=== PATIENT | female | born 1955 | race Caucasian/White ===

== ENCOUNTER → 2016-11-30 | Outpatient (CLI) | payer BC ==
--- NOTE | 2016-11-30 16:11 | BD ---
EXAMINATION TYPE: MG DEXA axial skeleton. DATE OF EXAM: 11/30/2016 COMPARISON: Previous study dated 02/01/2014 CLINICAL HISTORY: Postmenopausal female Height: 66 IN Weight: 121 LBS FRAX RISK QUESTIONS: Alcohol (3 or more units per day): NO Family History (Parent hip fracture): NO Glucocorticoids (More than 3mos): NO (Ex: prednisone, prednisolone, methylprednisolone, dexamethasone, and hydrocortisone). History of Fracture in Adulthood: YES RT FOOT AGE 57 Secondary Osteoporosis: 1. Type 1 Diabetes: NO 2. Hyperthyroidism: NO 3. Menopause before 45: NO 4. Malnutrition: NO 5. Chronic liver disease: NO Rheumatoid Arthritis: NO Current Tobacco Use: NO RISK FACTORS HISTORY OF: Other Fractures since Age 52: YES RT FOOT When: AGE 57 Family History of Osteoporosis: YES SISTERS X 3 Active: YES Diet low in dairy products/other sources of calcium: YES Postmenopausal woman: AGE 52 Take estrogen and/or progesterone medications: NOT NOW How long: TOOK CONTROL AGE 22 - 25 MEDICATIONS: Thyroid Medications: YES Which medication: Levothyroxine How Lon + YRS Osteoporosis Medications: YES Which medication: Fosamax How Long: SINCE AGR 37 Additional Medications: CALCIUM, VIT D, FOSAMAX, LEVOTHYROXINE,SIMVASTATIN, SINGULAIR, ELAVIL, DICLOF ENAC, LATANOPROST MIHAELA, FLOVENT DISK, FIORICET EXAM MEASUREMENTS: Bone mineral densitometry was performed using the Connect[employer] System. Bone mineral density as measured about the Lumbar spine is: ----- L1-L4(G/cm2): 0.942 T Score Values are as follows: ----- L2: -2.9 ----- L3: -1.3 ----- L4: -1.7 ----- L1-L4: -2.0 Bone mineral density has: Decreased -1.1% since study of: 02/01/2014 Bone mineral density about the R hip (g/cm2): 0.574 Bone mineral density about the L hip (g/cm2): 0.633 T Score values are as follows: -----R Neck: -3.3 -----L Neck: -2.9 -----R Total: -3.1 -----L Total: -2.6 Bone mineral density has: Decreased -4.1% since study of: 02/01/2014 IMPRESSION: OSTEOPOROSIS MAJOR OSTEOPOROTIC FRACTURE RISK: 14.7% HIP FRACTURE RISK: 5.4% NOTE: T-SCORE=SD OF THE YOUNG ADULT MEAN.
--- NOTE | 2016-12-01 09:59 | MM ---
Reason for exam: screening (asymptomatic). Last mammogram was performed 1 year and 6 months ago. History: Patient is postmenopausal and is nulliparous. Breast lifts of both breasts, 2013. Implant Removal of both breasts, 2013. Retro-pectoral silicone gel implants in both breasts, 1989. Took hormonal contraceptives for 7 months beginning at age 50. Took estrogen for 2 months beginning at age 52. Physical Findings: A clinical breast exam by your physician is recommended on an annual basis and results should be correlated with mammographic findings. MG Screening Mammo w CAD Bilateral CC and MLO view(s) were taken. Prior study comparison: May 29, 2015, bilateral MG screening mammo w CAD. February 01, 2014, bilateral MG diagnostic mammo w CAD REGINO. January 31, 2013, CAD bilateral diagnostic mammogram. The breast tissue is extremely dense which could obscure a lesion on mammography. Focal asymmetry left MLO view upper middle depth. This finding is changed, more defined when compared with previous exams 2014. ASSESSMENT: Incomplete: need additional imaging evaluation, BI-RAD 0 RECOMMENDATION: Special view mammogram of the left breast. If lesion persists on supplemental views, image directed ultrasound is recommended. [facility] will attempt to contact patient to return for supplemental views and ultrasound if indicated.
== END | disposition home or self-care (01) ==
LOC: RADMAMWWP 09:08
PROVIDERS: ATTEND Obstetrics & Gynecology
DX: Z12.31 Encounter for screening mammogram for malignant neoplasm of breast (principal); M81.0 Age-related osteoporosis without current pathological fracture; R92.2 Inconclusive mammogram
CPT/HCPCS: 77080; G0202

== ENCOUNTER → 2016-12-09 | Outpatient (CLI) | payer BC ==
--- NOTE | 2016-12-09 10:42 | MM ---
Reason for exam: additional evaluation requested from abnormal screening. Last mammogram was performed less than 1 month ago. History: Patient is postmenopausal and is nulliparous. Breast lifts of both breasts, 2013. Implant Removal of both breasts, 2013. Retro-pectoral silicone gel implants in both breasts, 1989. Took hormonal contraceptives for 7 months beginning at age 50. Took estrogen for 2 months beginning at age 52. Physical Findings: Nurse did not find any significant physical abnormalities on exam. MG Work Up Mamm w CAD LT LM, spot compression XCCL, and spot compression MLO view(s) were taken of the left breast. Prior study comparison: November 30, 2016, bilateral MG screening mammo w CAD. June 04, 2015, right breast MG 3d work up w/cad RT. The breast tissue is extremely dense which could obscure a lesion on mammography. There is no discrete abnormality. These results were verbally communicated with the patient and result sheet given to the patient on 12/09/16. ASSESSMENT: Probably benign, BI-RAD 3 RECOMMENDATION: Follow-up diagnostic mammogram of the left breast in 6 months.
== END ==
LOC: RADMAMWWP 09:45
PROVIDERS: ATTEND Obstetrics & Gynecology
DX: R92.8 Other abnormal and inconclusive findings on diagnostic imaging of breast (principal)

== ENCOUNTER → 2017-06-10 | Outpatient (CLI) | payer BC ==
--- NOTE | 2017-06-10 12:31 | MM ---
Reason for exam: follow-up at short interval from prior study. Last mammogram was performed 6 months ago. History: Patient is postmenopausal and is nulliparous. Breast lifts of both breasts, 2013. Implant Removal of both breasts, 2013. Retro-pectoral silicone gel implants in both breasts, 1989. Took hormonal contraceptives for 7 months beginning at age 50. Took estrogen for 2 months beginning at age 52. Physical Findings: Nurse did not find any significant physical abnormalities on exam. MG 3D Diag Mammo W/Cad LT CC and MLO view(s) were taken of the left breast. Prior study comparison: December 09, 2016, left breast MG work up mamm w CAD LT. November 30, 2016, bilateral MG screening mammo w CAD. The breast tissue is heterogeneously dense. This may lower the sensitivity of mammography. There is no discrete abnormality. These results were verbally communicated with the patient and result sheet given to the patient on 06/10/17. ASSESSMENT: Negative, BI-RAD 1 RECOMMENDATION: Return to routine screening mammogram schedule for both breasts. Back on schedule for November 2017.
== END | disposition home or self-care (01) ==
LOC: RADMAMWWP 10:15
PROVIDERS: ATTEND Obstetrics & Gynecology
DX: R92.8 Other abnormal and inconclusive findings on diagnostic imaging of breast (principal)
CPT/HCPCS: G0206; G0279

== ENCOUNTER → 2018-02-07 | Outpatient (CLI) | payer BC ==
--- NOTE | 2018-02-09 09:07 | MM ---
Reason for exam: screening (asymptomatic). Last mammogram was performed 8 months ago. History: Patient is postmenopausal and is nulliparous. Breast lifts of both breasts, 2013. Implant Removal of both breasts, 2013. Retro-pectoral silicone gel implants in both breasts, 1989. Took hormonal contraceptives for 7 months beginning at age 50. Took estrogen for 2 months beginning at age 52. Physical Findings: A clinical breast exam by your physician is recommended on an annual basis and results should be correlated with mammographic findings. MG 3D Screening Mammo W/Cad Bilateral CC and MLO view(s) were taken. Prior study comparison: June 10, 2017, left breast MG 3d diag mammo w/cad LT. December 09, 2016, left breast MG work up mamm w CAD LT. The breast tissue is extremely dense which could obscure a lesion on mammography. No significant changes when compared with prior studies. ASSESSMENT: Benign, BI-RAD 2 RECOMMENDATION: Routine screening mammogram of both breasts in 1 year.
== END | disposition home or self-care (01) ==
LOC: RADMAMWWP 11:14
PROVIDERS: ATTEND Obstetrics & Gynecology
DX: Z12.31 Encounter for screening mammogram for malignant neoplasm of breast (principal)
CPT/HCPCS: 77063; 77067

== ENCOUNTER → 2018-10-25 | Outpatient (CLI) | payer BC ==
[2018-10-26 05:29] LABS: Gliadin AB IgA, Unit <0.2 U/mL
== END | disposition home or self-care (01) ==
LOC: LABWHC1 14:25
PROVIDERS: ATTEND Allergy & Immunology
DX: K21.9 Gastro-esophageal reflux disease without esophagitis (principal)
CPT/HCPCS: 36415; 82784; 83516

== ENCOUNTER → 2019-03-08 | Outpatient (CLI) | payer BC ==
--- NOTE | 2019-03-08 15:32 | CT ---
EXAMINATION TYPE: CT urogram wo/w con DATE OF EXAM: 03/08/2019 COMPARISON: None INDICATION: Microhematuria DLP: 720.8 mGycm, Automated exposure control for dose reduction was used. CONTRAST: 100 mL of Isovue 300. Study performed TECHNIQUE: Axial images were obtained from above the diaphragm to the pubic rami in the axial plane a t 5 mm thick sections. Reconstructed images are reviewed on the computer in the coronal plane. 3-D reconstructive images performed on a separate computer by the technologist are reviewed. FINDINGS: Limited CT sections are obtained the lung bases. The lung bases are clear. CT ABDOMEN: Liver: Normal Spleen: Normal Pancreas: Normal Adrenal glands: The adrenal glands are normal. Gallbladder: Normal Kidneys: No masses are evident. No hydronephrosis is present. There is a superior medial cortical r enal cyst on the left kidney measuring 0.8 cm and 28 Hounsfield units. Delayed images were obtained through the kidneys, which remain unremarkable. 3-D reconstructive images performed on a separate [employer] by the technologist are reviewed. Renal calyces infundibula and renal pelves appear normal. Aorta: Vascular calcification is within the aorta. Inferior vena cava: Normal. CT PELVIS: Fecal debris is through the colon. The small bowel loops are slightly prominent with fluid filled loo ps of small bowel. Correlate for ileus. Appendix: The visualized Urinary bladder: Normal as visualized. Contrast within the colon. The distal left ureter is evident. Distal right ureter is not identified. No hydroureter is evident Genitourinary structures: Uterus is absent. Adnexal regions are clear. Osseous structures: No suspicious lytic or sclerotic lesions. IMPRESSIONS: 1. No suspicious etiology to account for microhematuria. 2. The distal right ureter is not identified during the exam. No hydroureter is evident.
== END | disposition home or self-care (01) ==
LOC: RADCTMAIN 08:30
PROVIDERS: ATTEND Urology
DX: R31.1 Benign essential microscopic hematuria (principal); Z88.4 Allergy status to anesthetic agent; Z88.5 Allergy status to narcotic agent
CPT/HCPCS: 74178; 74400; Q9967

== ENCOUNTER → 2019-03-09 | Outpatient (CLI) | payer BC ==
--- NOTE | 2019-03-12 13:43 | MM ---
Reason for exam: screening (asymptomatic). Last mammogram was performed 1 year and 1 month ago. History: Patient is postmenopausal and is nulliparous. Breast lifts of both breasts, 2013. Implant Removal of both breasts, 2013. Retro-pectoral silicone gel implants in both breasts, 1989. Took hormonal contraceptives for 7 months beginning at age 50. Took estrogen for 2 months beginning at age 52. Physical Findings: A clinical breast exam by your physician is recommended on an annual basis and results should be correlated with mammographic findings. MG 3D Screening Mammo W/Cad Bilateral CC and MLO view(s) were taken. Prior study comparison: February 07, 2018, bilateral MG 3d screening mammo w/cad. June 10, 2017, left breast MG 3d diag mammo w/cad LT. The breast tissue is heterogeneously dense. This may lower the sensitivity of mammography. Left lower outer quadrant 5 x 8mm mas 3cm from nipple. Right lower inner quadrant focal asymmetry at middle depth 3.5-4cm from nipple. ASSESSMENT: Incomplete: need additional imaging evaluation, BI-RAD 0 RECOMMENDATION: Special view mammogram of both breasts. If lesion persists on supplemental views, image directed ultrasound is recommended. [facility] will attempt to contact patient to return for supplemental views and ultrasound if indicated.
== END | disposition home or self-care (01) ==
LOC: RADMAMWWP 11:24
PROVIDERS: ATTEND Obstetrics & Gynecology
DX: Z12.31 Encounter for screening mammogram for malignant neoplasm of breast (principal)
CPT/HCPCS: 77063; 77067

== ENCOUNTER → 2019-03-20 | Outpatient (CLI) | payer BC ==
--- NOTE | 2019-03-20 13:43 | MM ---
Reason for exam: additional evaluation requested from abnormal screening. Last mammogram was performed less than 1 month ago. History: Patient is postmenopausal and is nulliparous. Breast lifts of both breasts, 2013. Implant Removal of both breasts, 2013. Retro-pectoral silicone gel implants in both breasts, 1989. Took hormonal contraceptives for 7 months beginning at age 50. Took estrogen for 2 months beginning at age 52. Physical Findings: Nurse did not find any significant physical abnormalities on exam. MG 3D Work Up W/Cad REGINO Bilateral spot compression CC, spot compression MLO, and LM view(s) were taken. Prior study comparison: March 09, 2019, bilateral MG 3d screening mammo w/cad. February 07, 2018, bilateral MG 3d screening mammo w/cad. The breast tissue is heterogeneously dense. This may lower the sensitivity of mammography. The previously seen abnormality resolves on additional views and appears as fibroglandular tissue compatible with summation. Bilateral, however, left lateral distortion is subtly seen on spot CC 3D 4.3cm from nipple. without correlate on ML or MLO. These results were verbally communicated with the patient and result sheet given to the patient on 03/20/19. ASSESSMENT: Incomplete: need additional imaging evaluation, BI-RAD 0 RECOMMENDATION: Ultrasound of the left breast. (lateral)
--- NOTE | 2019-03-20 13:44 | USB ---
Reason for exam: additional evaluation requested from abnormal screening. History: Patient is postmenopausal and is nulliparous. Breast lifts of both breasts, 2013. Implant Removal of both breasts, 2013. Retro-pectoral silicone gel implants in both breasts, 1989. Took hormonal contraceptives for 7 months beginning at age 50. Took estrogen for 2 months beginning at age 52. US Breast Workup Limited LT Left limited breast ultrasound including focal area of concern, retroareolar and axilla demonstrates a 0.4 x 0.6 x 0.2cm oval, cystic lesion at 4 o'clock, appears as a complicated cyst in dense tissue. 6 month follow up recommended. These results were verbally communicated with the patient and result sheet given to the patient on 03/20/19. ASSESSMENT: Probably benign, BI-RAD 3 RECOMMENDATION: Ultrasound of the left breast in 6 months.
== END | disposition home or self-care (01) ==
LOC: RADMAMWWP 08:57
PROVIDERS: ATTEND Obstetrics & Gynecology
DX: R92.8 Other abnormal and inconclusive findings on diagnostic imaging of breast (principal)
CPT/HCPCS: 77062; 77066

== ENCOUNTER 2019-04-12 10:42 | Day surgery (SDC) | payer BC ==
[2019-04-09 11:05] VITALS: BMI 20.1
[~2019-04-12 10:42] MED LIST: LACTATED RINGERS 1,000 ML IV SCH
[2019-04-12 11:38] VITALS: TEMP 98.6
[2019-04-12] MEDS ORDERED: LIDOCAINE 1% 20 ML VIAL (10MG/ML) FOR IV START INTRADERMA ONE (11:51)
[2019-04-12] MEDS ORDERED: PROPOFOL 10 MG/ML 20 ML VIAL IV ONE (12:02)
--- NOTE | 2019-04-12 12:12 | P.PCN ---
Date of Procedure: 04/12/19 Procedure(s) Performed: BRIEF HISTORY: Patient is a 63-year-old, pleasant, 8 female, scheduled for an upper endoscopy as a part of evaluation of constant throat irritation for 25 years duration. Recently she was tried on Prilosec 20 mg daily and symptoms completely resolved. However she does not want to take the medications forever and hence he scheduled for an upper endoscopy to evaluate for GERD causing the symptoms.. PROCEDURE PERFORMED: Esophagogastroduodenoscopy with biopsy. PREOPERATIVE DIAGNOSIS: Chronic Throat irritation and throat discomfort. IV sedation per anesthesia. PROCEDURE: After informed consent was obtained, the patient was brought into the endoscopy unit. IV sedation was administered by Anesthesia under continuous monitoring. Initially the Olympus GIF-140 video endoscope was inserted into the mouth. Esophagus intubated without any difficulty. It was gradually advanced into the stomach and duodenum and carefully examined. The bulb and the second part of the duodenum appeared normal. The scope at this time was withdrawn to the stomach, adequately insufflated with air, and upon careful examination, mucosa of the antrum, body, cardia and the fundus appeared normal. The scope was then withdrawn into the esophagus. The GE junction was located at 39 cm from the incisors. Small sliding type hiatal hernia noted. There was patchy erythema of the GE junction consistent with LA grade A reflux esophagitis. The rest of the esophagus appeared normal. As his were done from the mid and distal esophagus. The patient tolerated the procedure well. IMPRESSION: 1. Small sliding type hiatal hiatal hernia. 2. LA grade a reflux esophagitis. RECOMMENDATIONS: The findings of this examination were discussed with the patient as well as her family. She will follow with the biopsy results. She was advised to try Pepcid 20 mg twice daily for possible GERD causing atypical laryngeal symptoms. If there is no benefit she can start back on Prilosec 20 mg daily. Briefly educated about diet modification antireflux measures..
[2019-04-12] MEDS ORDERED: ONDANSETRON 4 MG/2 ML VIAL IVP ONE (12:24)
[2019-04-12 12:37] VITALS: RESP 16
[2019-04-12 12:53] VITALS: BP 118/76; PULSE 66
== END 2019-04-12 13:02 | disposition home or self-care (01) ==
LOC: ORWHC2ENDO 10:42
PROVIDERS: ATTEND Internal Medicine Gastroenterology
DX: K21.0 Gastro-esophageal reflux disease with esophagitis (principal); K44.9 Diaphragmatic hernia without obstruction or gangrene; Z88.5 Allergy status to narcotic agent; Z88.8 Allergy status to other drugs, medicaments and biological substances; E78.5 Hyperlipidemia, unspecified; M79.7 Fibromyalgia; Z79.899 Other long term (current) drug therapy
CPT/HCPCS: 88305; 43239; J2405; J2704

== ENCOUNTER → 2020-01-03 | Outpatient (CLI) | payer BC ==
--- NOTE | 2020-01-04 07:47 | USB ---
Reason for exam: follow-up at short interval from prior study. History: Patient is postmenopausal and is nulliparous. Breast lifts of both breasts, 2013. Implant Removal of both breasts, 2013. Retro-pectoral silicone gel implants in both breasts, 1989. Took hormonal contraceptives for 7 months beginning at age 50. Took estrogen for 2 months beginning at age 52. Physical Findings: Nurse Summary: all soft, nodular, movable (nurse ts). US Breast Limited LT Right limited breast ultrasound including focal area of concern, retroareolar and axilla demonstrates no cystic or solid lesion seen. These results were verbally communicated with the patient and result sheet given to the patient on 01/03/20. ASSESSMENT: Benign, BI-RAD 2 RECOMMENDATION: Follow-up diagnostic mammogram of both breasts in 2 months. Back on schedule for February 2020. Ultrasound of the left breast in 6 months.
== END | disposition home or self-care (01) ==
LOC: RADUSWWP 14:22
PROVIDERS: ATTEND Obstetrics & Gynecology
DX: R92.8 Other abnormal and inconclusive findings on diagnostic imaging of breast (principal)

== ENCOUNTER → 2020-04-07 | Outpatient (CLI) | payer BC ==
--- NOTE | 2020-04-08 12:09 | MM ---
Reason for exam: additional evaluation requested from prior study. Last mammogram was performed 1 year and 1 month ago. History: Patient is postmenopausal and is nulliparous. Breast lifts of both breasts, 2013. Implant Removal of both breasts, 2013. Retro-pectoral silicone gel implants in both breasts, 1989. Took hormonal contraceptives for 7 months beginning at age 50. Took estrogen for 2 months beginning at age 52. Physical Findings: Nurse did not find any significant physical abnormalities on exam. MG 3D Diag Mammo W/Cad REGINO Bilateral CC and MLO view(s) were taken. Prior study comparison: March 20, 2019, bilateral MG 3d work up w/cad REGINO. March 09, 2019, bilateral MG 3d screening mammo w/cad. The breast tissue is heterogeneously dense. This may lower the sensitivity of mammography. There is chronic nodularity in the left breast. Posterior central focal asymmetry right breast becomes less defined on spot 3D and 3D lateral. These results were verbally communicated with the patient and result sheet given to the patient on 04/07/20. ASSESSMENT: Incomplete: need additional imaging evaluation, BI-RAD 0 RECOMMENDATION: Ultrasound of the right breast. (subareolar and periareolar)
--- NOTE | 2020-04-08 12:10 | USB ---
Reason for exam: additional evaluation requested from abnormal screening. History: Patient is postmenopausal and is nulliparous. Breast lifts of both breasts, 2013. Implant Removal of both breasts, 2013. Retro-pectoral silicone gel implants in both breasts, 1989. Took hormonal contraceptives for 7 months beginning at age 50. Took estrogen for 2 months beginning at age 52. US Breast Limited RT Right limited breast ultrasound including focal area of concern, retroareolar and axilla demonstrates no cystic or solid lesion seen. Scanned subareolar and periareolar. Dense tissue is noted. These results were verbally communicated with the patient and result sheet given to the patient on 04/07/20. ASSESSMENT: Probably benign, BI-RAD 3 RECOMMENDATION: Follow-up diagnostic mammogram of the right breast in 6 months.
== END | disposition home or self-care (01) ==
LOC: RADMAMWWP 14:33
PROVIDERS: ATTEND Obstetrics & Gynecology
DX: R92.8 Other abnormal and inconclusive findings on diagnostic imaging of breast (principal)
CPT/HCPCS: 77062; 77066

== ENCOUNTER 2020-07-16 18:15 | Emergency (ER) | payer BC ==
[2020-07-16] MEDS ORDERED: ONDANSETRON 4 MG/2 ML VIAL IVP STA (18:54)
[2020-07-16] MEDS ORDERED: SODIUM CHLORIDE 0.9% 1,000 ML IV STA (18:54)
[2020-07-16] MEDS ORDERED: HYDROmorphone 0.5 MG/0.5 ML SYRINGE IVP STA (18:55)
--- NOTE | 2020-07-16 18:59 | ED ---
General Adult HPI - General Chief complaint: Abdominal Pain Stated complaint: abd pain Time Seen by Provider: 07/16/20 18:46 Source: patient, RN notes reviewed Mode of arrival: wheelchair Limitations: no limitations - History of Present Illness Initial comments: Patient is a pleasant 64-year-old female presenting to the emergency Department with complaints of abdominal discomfort. Onset of symptoms was a couple hours ago. Patient had mild back discomfort right lower earlier today. Abdominal discomfort is somewhat severe at this time and right lower abdomen. Patient has some nausea. No vomiting. No constipation or diarrhea. No hematuria or d ysuria. No history of similar symptoms previously. Discomfort does increase With movement and position changes - Related Data Home Medications Medication Instructions Recorded Confirmed Buta/APAP/Caf/Cod 56-935-44-30 1 cap PO TID PRN 12/08/15 04/12/19 [Fioricet w/Cod 03-008-54-30MG] Levothyroxine Sodium [Levoxyl] 50 mcg PO DAILY 12/08/15 04/12/19 Naltrexone HCl [Revia] 4.5 mg PO DAILY 12/08/15 04/12/19 Simvastatin [Zocor] 40 mg PO DAILY 12/08/15 04/12/19 Amitriptyline HCl [Elavil] 30 mg PO HS 04/09/19 04/12/19 Bimatoprost [Lumigan .01% Ophth 1 drop BOTH EYES HS 04/09/19 04/12/19 Soln] Mometasone Furoate [Asmanex] 1 puff INHALATION DAILY 04/09/19 04/12/19 Galcanezumab-Gnlm [Emgality 120 mg SQ DAILY PRN 04/12/19 04/12/19 Syringe] Allergies Allergy/AdvReac Type Severity Reaction Status Date / Time bupivacaine HCl Allergy Wheezing Verified 07/16/20 18:33 [From Marcaine] ketorolac tromethamine Allergy Vomiting Verified 07/16/20 18:33 [From Toradol] meperidine HCl [From Demerol] Allergy Vomiting Verified 07/16/20 18:33 Milk Containing Products Allergy Anaphylaxis Verified 07/16/20 18:33 [Dairy] Review of Systems ROS Statement: Those systems with pertinent positive or pertinent negative responses have been documented in the HPI. ROS Other: All systems not noted in ROS Statement are negative. Constitutional: Denies: fever Eyes: Denies: eye pain ENT: Denies: ear pain Respiratory: Denies: cough Cardiovascular: Denies: chest pain Endocrine: Denies: fatigue Gastrointestinal: Reports: as per HPI, abdominal pain, nausea. Denies: vomiting Genitourinary: Denies: dysuria Musculoskeletal: Reports: as per HPI Skin: Denies: rash Neurological: Denies: weakness Past Medical History Past Medical History: Eye Disorder, Fibromyalgia, Hyperlipidemia, Neurologic Disorder, Osteoarthritis (OA), Thyroid Disorder Additional Past Medical History / Comment(s): , migraine headaches, hypothyroid - Hashimotos, GLAUCOMA History of Any Multi-Drug Resistant Organisms: None Reported Past Surgical History: Hysterectomy Additional Past Surgical History / Comment(s): RK surgery, cataract surgery BILAT EYES, COLONOSCOPY Past Anesthesia/Blood Transfusion Reactions: Postoperative Nausea & Vomiting (PONV) Additional Past Anesthesia/Blood Transfusion Reaction / Comment(s): no blood transfusions Past Psychological History: No Psychological Hx Reported Smoking Status: Never smoker Past Alcohol Use History: Rare Past Drug Use History: None Reported - Past Family History Mother Family Medical History: Cancer Additional Family Medical History / Comment(s): lung Sister(s) Family Medical History: Cancer Additional Family Medical History / Comment(s): lung Father Family Medical History: Cancer General Exam Limitations: no limitations General appearance: alert Head exam: Present: normocephalic Eye exam: Present: normal appearance Neck exam: Present: normal inspection Respiratory exam: Present: normal lung sounds bilaterally Cardiovascular Exam: Present: regular rate, normal rhythm Expanded Peripheral pulses: 2+: Dorsalis Pedis (R), Dorsalis Pedis (L) GI/Abdominal exam: Present: soft, tenderness (Moderate tenderness right lower quadrant), guarding. Absent: distended, rebound, rigid Extremities exam: Present: normal inspection. Absent: pedal edema, calf tenderness Back exam: Present: normal inspection. Absent: tenderness, CVA tenderness (R) Neurological exam: Present: alert Psychiatric exam: Present: normal affect, normal mood Skin exam: Present: normal color Course Vital Signs 07/16/20 18:31 Temperature 98.8 F Pulse Rate 74 Respiratory 16 Rate Blood Pressure 132/83 O2 Sat by Pulse 98 Oximetry Medical Decision Making - Medical Decision Making Patient evaluated and resting comfortably in bed. Patient is feeling much better. Abdomen soft and nontender. Patient updated on results and need for follow-up. Also updated and need to return for worsening symptoms. Patient does not want any treatment for constipation at this point and will take something at home. - Lab Data Result diagrams: 07/16/20 19:03 07/16/20 19:03 Lab Results 07/16/20 07/16/20 07/16/20 Range/Units 19:03 19: 19:03 WBC 11.8 H (3.8-10.6) k/uL RBC 4.04 (3.80-5.40) m/uL Hgb 13.1 (11.4-16.0) gm/dL Hct 40.8 (34.0-46.0) % MCV 101.0 H (80.0-100.0) fL MCH 32.3 (25.0-35.0) pg MCHC 32.0 (31.0-37.0) g/dL RDW 15.9 H (11.5-15.5) % Plt Count 371 (150-450) k/uL MPV 6.8 Neutrophils % 83 % Lymphocytes % 11 % Monocytes % 4 % Eosinophils % 1 % Basophils % 1 % Neutrophils # 9.7 H (1.3-7.7) k/uL Lymphocytes # 1.2 (1.0-4.8) k/uL Monocytes # 0.4 (0-1.0) k/uL Eosinophils # 0.1 (0-0.7) k/uL Basophils # 0.1 (0-0.2) k/uL Hypochromasia Marked Poikilocytosis Moderate Macrocytosis Slight PT 10.3 (9.0-12.0) sec INR 1.0 (<1.2) APTT 19.8 L (22.0-30.0) sec Sodium (137-145) mmol/L Potassium (3.5-5.1) mmol/L Chloride (98-107) mmol/L Carbon Dioxide (22-30) mmol/L Anion Gap mmol/L BUN (7-17) mg/dL Creatinine (0.52-1.04) mg/dL Est GFR (CKD-EPI)AfAm (>60 ml/min/1.73 sqM) Est GFR (CKD-EPI)NonAf (>60 ml/min/1.73 sqM) Glucose (74-99) mg/dL Calcium (8.4-10.2) mg/dL Total Bilirubin (0.2-1.3) mg/dL AST (14-36) U/L ALT (4-34) U/L Alkaline Phosphatase (38-126) U/L Total Protein (6.3-8.2) g/dL Albumin (3.5-5.0) g/dL Amylase (30-110) U/L Lipase (23-300) U/L Urine Color Yellow Urine Appearance Turbid H (Clear) Urine pH 8.0 (5.0-8.0) Ur Specific Knox 1.015 (1.001-1.035) Urine Protein Trace H (Negative) Urine Glucose (UA) Negative (Negative) Urine Ketones Negative (Negative) Urine Blood Negative (Negative) Urine Nitrite Negative (Negative) Urine Bilirubin Negative (Negative) Urine Urobilinogen <2.0 (<2.0) mg/dL Ur Leukocyte Esterase Negative (Negative) Urine RBC 4 (0-5) /hpf Urine WBC 8 H (0-5) /hpf Urine WBC Clumps Few H (None) /hpf Urine Mucus Rare H (None) /hpf Urine Yeast (Budding) Many H (None) /hpf 07/16/20 Range/Units 19:03 WBC (3.8-10.6) k/uL RBC (3.80-5.40) m/uL Hgb (11.4-16.0) gm/dL Hct (34.0-46.0) % MCV (80.0-100.0) fL MCH (25.0-35.0) pg MCHC (31.0-37.0) g/dL RDW (11.5-15.5) % Plt Count (150-450) k/uL MPV Neutrophils % % Lymphocytes % % Monocytes % % Eosinophils % % Basophils % % Neutrophils # (1.3-7.7) k/uL Lymphocytes # (1.0-4.8) k/uL Monocytes # (0-1.0) k/uL Eosinophils # (0-0.7) k/uL Basophils # (0-0.2) k/uL Hypochromasia Poikilocytosis Macrocytosis PT (9.0-12.0) sec INR (<1.2) APTT (22.0-30.0) sec Sodium 132 L (137-145) mmol/L Potassium 4.4 (3.5-5.1) mmol/L Chloride 98 (98-107) mmol/L Carbon Dioxide 23 (22-30) mmol/L Anion Gap 11 mmol/L BUN 26 H (7-17) mg/dL Creatinine 0.69 (0.52-1.04) mg/dL Est GFR (CKD-EPI)AfAm >90 (>60 ml/min/1.73 sqM) Est GFR (CKD-EPI)NonAf >90 (>60 ml/min/1.73 sqM) Glucose 121 H (74-99) mg/dL Calcium 9.7 (8.4-10.2) mg/dL Total Bilirubin 0.4 (0.2-1.3) mg/dL AST 37 H (14-36) U/L ALT 19 (4-34) U/L Alkaline Phosphatase 52 (38-126) U/L Total Protein 8.6 H (6.3-8.2) g/dL Albumin 4.9 (3.5-5.0) g/dL Amylase 67 (30-110) U/L Lipase 161 (23-300) U/L Urine Color Urine Appearance (Clear) Urine pH (5.0-8.0) Ur Specific Knox (1.001-1.035) Urine Protein (Negative) Urine Glucose (UA) (Negative) Urine Ketones (Negative) Urine Blood (Negative) Urine Nitrite (Negative) Urine Bilirubin (Negative) Urine Urobilinogen (<2.0) mg/dL Ur Leukocyte Esterase (Negative) Urine RBC (0-5) /hpf Urine WBC (0-5) /hpf Urine WBC Clumps (None) /hpf Urine Mucus (None) /hpf Urine Yeast (Budding) (None) /hpf - Radiology Data Radiology results: report reviewed (Computed tomography scan shows some mild thickening of the jejunum, could be related to gastroenteritis. Normal appendix. Mild constipation.) Disposition Clinical Impression: Abdominal pain Disposition: HOME SELF-CARE Condition: Stable Instructions (If sedation given, give patient instructions): Abdominal Pain (ED), Constipation (ED), High Fiber Diet (ED) Additional Instructions: Please follow-up with primary care physician in the next 24 hours for recheck. Return for increased pain, fevers, vomiting, worsening symptoms or other concerns. Consider [id number] Fleet's enema, suppository, or prune juice. Is patient prescribed a controlled substance at d/c from ED?: No Referrals: Doris Leong DO [Primary Care Provider] - 1-2 days Time of Disposition: 20:10
[2020-07-16 19:11] LABS: Basophils # (A) 0.1 k/uL (0-0.2); Basophils % (A) 1 %; Eosinophils # (A) 0.1 k/uL (0-0.7); Eosinophils % (A) 1 %; HCT 40.8 % (34.0-46.0); HGB 13.1 gm/dL (11.4-16.0); Hypochromasia Marked; Lymphocytes # (A) 1.2 k/uL (1.0-4.8); Lymphocytes % (A) 11 %; MCH 32.3 pg (25.0-35.0); Macrocytosis Slight; Mean Platelet Volume 6.8; Monocytes # (A) 0.4 k/uL (0-1.0); Monocytes % (A) 4 %; Neutrophils # (A) 9.7 k/uL (1.3-7.7); Neutrophils % (A) 83 %; Platelet Count 371 k/uL (150-450); Poikilocytosis Moderate; RBC 4.04 m/uL (3.80-5.40); RDW 15.9 % (11.5-15.5); WBC 11.8 k/uL (3.8-10.6)
[2020-07-16 19:14] LABS: Appearance,Urine Turbid (Clear); Bilirubin,Urine Negative (Negative); Blood,Urine Negative (Negative); Budding Yeast,Urine Many /hpf; Color,Urine Yellow; Glucose,Urine (UA) Negative (Negative); Ketones,Urine Negative (Negative); Leukocyte Esterase,Urine Negative (Negative); Mucus,Urine Rare /hpf; Nitrite,Urine Negative (Negative); Protein,Urine Trace (Negative); RBC,Urine 4 /hpf (0-5); Specific Gravity,Urine 1.015 (1.001-1.035); Urobilinogen,Urine <2.0 mg/dL (<2.0); WBC,Urine 8 /hpf (0-5)
[2020-07-16 19:23] LABS: ALT 19 U/L (4-34); AST 37 U/L (14-36); African American GFR (CKD) >90 (>60 ml/min/1.73 sqM); Albumin 4.9 g/dL (3.5-5.0); Alkaline Phosphatase 52 U/L (38-126); Amylase 67 U/L (30-110); Anion Gap 11 mmol/L; Blood Urea Nitrogen 26 mg/dL (7-17); Calcium 9.7 mg/dL (8.4-10.2); Carbon Dioxide 23 mmol/L (22-30); Chloride 98 mmol/L (98-107); Glucose 121 mg/dL (74-99); Lipase 161 U/L (23-300); Non-African American GFR(CKD) >90 (>60 ml/min/1.73 sqM); Sodium 132 mmol/L (137-145); Total Bilirubin 0.4 mg/dL (0.2-1.3); Total Protein 8.6 g/dL (6.3-8.2)
[2020-07-16 19:24] LABS: Potassium 4.4 mmol/L (3.5-5.1)
[2020-07-16 19:30] LABS: Prothrombin Time 10.3 sec (9.0-12.0)
[2020-07-16 19:35] LABS: Partial Thromboplastin Time 19.8 sec (22.0-30.0)
--- NOTE | 2020-07-16 19:40 | CT ---
EXAMINATION TYPE: CT abdomen pelvis w con DATE OF EXAM: 07/16/2020 COMPARISON: 03/08/2019 HISTORY: RLQ pain CT DLP: 502.6 mGycm Automated exposure control for dose reduction was used. CONTRAST: Performed with IV Contrast, patient injected with 100 mL of Isovue 300. The lung bases are clear of infiltrate. There is no pleural effusion. Heart size is normal. There is no pericardial effusion. There is minimal subsegmental atelectasis right lung base. Liver spleen stomach pancreas gallbladder appear normal. Bile ducts are not dilated. There is no adrenal mass. Kidneys show normal size and contour. There is no hydronephrosis. Ureters a re not dilated. There is no retroperitoneal adenopathy. There is no free fluid in the pelvis. Bladder distends smoothly. There is some retained fecal material in the large bowel. Appendix is medial and appears normal. There appears to be some thick-walled loops of jejunum in the upper abdomen. The lumbar vertebra have normal alignment. Posterior elements are intact. Bony pelvis is intact. Hip joints are intact. I see no bony destructive process. There is no mesenteric edema. There is no ascit es or free air. There is no bowel obstruction. There is 8mm cortical cyst upper pole left kidney. IMPRESSION: Jejunum appears to have some mild wall thickening that could be some gastroenteritis. Normal appendix. Mild constipation.
[2020-07-16 21:03] VITALS: BP 105/64; PULSE 85; RESP 18; TEMP 98.1
== END 2020-07-16 21:03 | disposition home or self-care (01) ==
LOC: EC 18:15
DX: R10.9 Unspecified abdominal pain (principal); R11.0 Nausea; E78.5 Hyperlipidemia, unspecified; E03.9 Hypothyroidism, unspecified; Z79.890 Hormone replacement therapy; Z79.51 Long term (current) use of inhaled steroids; Z79.899 Other long term (current) drug therapy; Z88.5 Allergy status to narcotic agent; Z88.4 Allergy status to anesthetic agent; Z91.011 Allergy to milk products
CPT/HCPCS: 36415; 80053; 82150; 83690; 85025; 85610; 85730; 81001; 74177; 99284; 96374; 96375; 96361 ×2; J2405; J1170; Q9967

== ENCOUNTER → 2020-10-23 | Outpatient (CLI) | payer BC ==
--- NOTE | 2020-10-23 12:08 | MM ---
Reason for exam: follow-up at short interval from prior study. Last mammogram was performed 7 months ago. History: Patient is postmenopausal and is nulliparous. Breast lifts of both breasts, 2013. Implant Removal of both breasts, 2013. Retro-pectoral silicone gel implants in both breasts, 1989. Took hormonal contraceptives for 7 months beginning at age 50. Taking estrogen for 13 years 2 months beginning at age 52. Physical Findings: Nurse did not find any significant physical abnormalities on exam. MG 3D Diag Mammo W/Cad RT CC and MLO view(s) were taken of the right breast. Prior study comparison: April 07, 2020, bilateral MG 3d diag mammo w/cad REGINO. March 20, 2019, bilateral MG 3d work up w/cad REGINO. The breast tissue is extremely dense which could obscure a lesion on mammography. There is no discrete abnormality including area of concern. No significant new findings when compared with previous films. These results were verbally communicated with the patient and result sheet given to the patient on 10/23/20. ASSESSMENT: Negative, BI-RAD 1 RECOMMENDATION: Routine screening mammogram of both breasts in 6 months. Back on schedule.
== END | disposition home or self-care (01) ==
LOC: RADMAMWWP 10:46
PROVIDERS: ATTEND Obstetrics & Gynecology
DX: R92.2 Inconclusive mammogram (principal); Z78.0 Asymptomatic menopausal state
CPT/HCPCS: 77061; 77065

== ENCOUNTER → 2020-11-20 | Outpatient (CLI) | payer BC ==
[2020-11-20 11:17] VITALS: BP 147/86; PULSE 86; RESP 18; TEMP 98.8
--- NOTE | 2020-11-20 11:43 | P.GSHP ---
History of Present Illness H&P Date: 11/20/20 Chief Complaint: right bresat lump Abbi is a 65 year old white female seen in consultation for DR. Owens regarding a lump in her right breast. She had a bilateral mammogram on [id number]. On this film she was noted to have chronic nodularity in the left breast. There was a focal asymmetry in the right breast and an ultrasound was recommended of the right breast. This was done on the same date and this did not reveal any specific cystic or solid lesion of concern and a follow-up diagnostic right breast mammogram in 6 months was recommended. This was repeated on and this was felt to be benign BIRADS 1. Approximately 2 weeks ago the patient noted a nodule in her right breast. The area is located in the upper outer quadrant region. It has not changed in size since she noticed it. It is not tender to palpation. She is not complaining of any nipple discharge or skin changes. She is not complaining of any trauma or infection in the breast. The patient had bilateral silicone implants placed in the past but these were removed approximately 7 years ago when she's not had any surgery on her breast since that time. Caffeine: 1 cup tea/day nicotine: none, second hand exposure until 32 chocolate: dark chocolate daily small amount Family history: Mother: Lung and throat cancer (smoker) father: Colon cancer sister: Lung cancer Hormonal history: Menarche:16 G0, intentional Menopause:hysterectomy at 52 took ovaries, fibroids BCP: 1 year hormones: vaginal estrogen since 52 still uses Surgical history: Total abdominal hysterectomy eye surgery/ glaucoma and cataract surgery Medical history: chronic migraines fibromyalgia High cholesterol Arthritis Social history: Nicotine: Negative, was exposed to secondhand smoke from until 32 Alcohol:none drugs: none - Constitutional Constitutional: Denies chills, Denies fever - EENT Comment: migraines daily/takes Fioricet with codeine and ibuprofen Eyes: denies blurred vision, denies pain Ears: deny: decreased hearing, tinnitus Ears, nose, mouth and throat: Reports headache, Denies sore throat - Breasts Breasts: bilateral: as per HPI - Cardiovascular Cardiovascular: Denies chest pain, Denies shortness of breath - Respiratory Respiratory: Denies cough, Denies 7 - Gastrointestinal Gastrointestinal: Denies abdominal pain, Denies diarrhea, Denies nausea, Denies vomiting - Genitourinary (Female) Genitourinary: Denies dysuria, Denies hematuria - Menstruation Menstruation: Reports post hysterectomy - Musculoskeletal Comment: Fibromyalgia/arthritis - Integumentary Integumentary: Denies pruritus, Denies rash - Neurological Comment: migraine headaches - Psychiatric Psychiatric: Denies anxiety, Denies depression - Endocrine Endocrine: Denies fatigue, Denies weight change - Hematologic/Lymphatic Comment: none - Allergic/Immunologic Allergic/Immunologic: Reports seasonal allergies Past Medical History Past Medical History: Eye Disorder, Fibromyalgia, Hyperlipidemia, Neurologic Disorder, Osteoarthritis (OA), Thyroid Disorder Additional Past Medical History / Comment(s): , migraine headaches, hypothyroid - Hashimotos, GLAUCOMA History of Any Multi-Drug Resistant Organisms: None Reported Past Surgical History: Hysterectomy Additional Past Surgical History / Comment(s): RK surgery, cataract surgery BILAT EYES, COLONOSCOPY Past Anesthesia/Blood Transfusion Reactions: Postoperative Nausea & Vomiting (PONV) Additional Past Anesthesia/Blood Transfusion Reaction / Comment(s): no blood transfusions Past Psychological History: No Psychological Hx Reported Smoking Status: Never smoker Past Alcohol Use History: Rare Past Drug Use History: None Reported - Past Family History Mother Family Medical History: Cancer Additional Family Medical History / Comment(s): lung Sister(s) Family Medical History: Cancer Additional Family Medical History / Comment(s): lung Father Family Medical History: Cancer Medications and Allergies Home Medications Medication Instructions Recorded Confirmed Type Buta/APAP/Caf/Cod [id number] 1 cap PO TID PRN 12/08/15 11/20/20 History [Fioricet w/Cod 92-214-95-30MG] Levothyroxine Sodium [Levoxyl] 50 mcg PO DAILY 12/08/15 11/20/20 History Naltrexone HCl [Revia] 4.5 mg PO DAILY 12/08/15 11/20/20 History Amitriptyline HCl [Elavil] 30 mg PO HS 04/09/19 11/20/20 History Mometasone Furoate [Asmanex] 1 puff INHALATION DAILY 04/09/19 04/12/19 History Diclofenac Sodium Gel [Voltaren 4 gm TOPICAL QID PRN 11/20/20 11/20/20 History Gel] Ibuprofen 200 mg PO Q8H PRN 11/20/20 11/20/20 History Latanoprost [Xalatan 0.005%] 1 drop BOTH EYES HS 11/20/20 11/20/20 History Rosuvastatin [Crestor] 20 mg PO HS 11/20/20 11/20/20 History Allergies Allergy/AdvReac Type Severity Reaction Status Date / Time bupivacaine HCl Allergy Wheezing Verified 11/20/20 11:10 [From Marcaine] ketorolac tromethamine Allergy Vomiting Verified 11/20/20 11:10 [From Toradol] meperidine HCl [From Demerol] Allergy Vomiting Verified 11/20/20 11:10 Milk Containing Products Allergy Anaphylaxis Verified 11/20/20 11:10 [Dairy] Surgical - Exam BMI 19.2 - General no distress - Eyes normal ocular movement - ENT no hearing loss - Neck trachea midline - Respiratory normal respiratory effort, clear to auscultation - Cardiovascular Rhythm: regular Heart Sounds: normal: S1, S2 - Abdomen Abdomen: soft, non tender, no guarding, no rigid, no rebound - Integumentary normal turgor - Neurologic no disoriented, no combative - Musculoskeletal normal gait - Psychiatric oriented to time, oriented to person, oriented to place, speech is normal, memory intact Breast exam: BRA: 34b/c inspection: Bilateral well-healed scars related to edwards pattern reduction mammoplasty after implants were removed, area of fullness is visually seen in the upper outer quadrant of the right breast Palpation: Right breast: Multi-positional exam fibrocystic changes, scar from edwards pattern reduction mammoplasty, 8 x 8 cm increased fullness upper outer quadrant region question whether this is subpectoral Right axilla: Shoddy adenopathy Left breast: Multiple positional exam fibrocystic changes, well-healed scars from edwards pattern reduction mammoplasty Left axilla: Shoddy adenopathy Results Patient's bilateral mammogram March 2020 and repeat right breast mammogram [id number], results reviewed as well of ultrasound right breast from March 2020 Assessment and Plan Assessment: Impression: chronic migraines fibromyalgia High cholesterol Arthritis Recent nodule formation right breast upper outer quadrant this is soft and feels somewhat cystic in nature Bilateral fibrocystic breast changes Plan: 1. Ultrasound right breast attention to upper outer quadrant area rule out cystic change versus possible lipoma, this is going to be done tomorrow and patient will follow up after the study is done 2. depending on results of the ultrasound consider core biopsy of the area of concern Cc: Dr. Owens, Dr. Solorzano
== END ==
LOC: WWCWWP 10:56
PROVIDERS: ATTEND Surgery
DX: N63.11 Unspecified lump in the right breast, upper outer quadrant (principal); N60.11 Diffuse cystic mastopathy of right breast; N60.12 Diffuse cystic mastopathy of left breast; E78.00 Pure hypercholesterolemia, unspecified; G43.909 Migraine, unspecified, not intractable, without status migrainosus; M79.7 Fibromyalgia; M19.90 Unspecified osteoarthritis, unspecified site; E78.5 Hyperlipidemia, unspecified; E03.9 Hypothyroidism, unspecified; Z88.6 Allergy status to analgesic agent; Z88.4 Allergy status to anesthetic agent; Z79.899 Other long term (current) drug therapy

== ENCOUNTER → 2020-11-21 | Outpatient (CLI) | payer BC ==
[2020-11-21 14:24] VITALS: BP 131/68; PULSE 71; RESP 16; TEMP 97.1
--- NOTE | 2020-11-21 14:56 | P.PN ---
Progress Note - Text Progress Note Date: 11/21/20 The patient had an ultrasound today which does show fluid collection in the upper chest wall and the lateral area on the right side. There is some question as to whether this is subpectoral in nature. After review with Dr. Thapa he has recommended a repeat right breast mammogram be performed. At have discussed this with the patient. The recommendation is depending on the mammogram findings that we would do an ultrasound-guided aspiration and send the fluid for cytology. This cannot be done today because it is Tuesday afternoon in the aspiration would be scheduled for the near future.
--- NOTE | 2020-11-27 11:31 | USB ---
Reason for exam: clinical finding. History: Patient is postmenopausal and is nulliparous. Breast lifts of both breasts, 2014. Implant Removal of both breasts, 2013. Retro-pectoral silicone gel implants in both breasts, 1989. Took hormonal contraceptives for 7 months beginning at age 50. Taking estrogen for 13 years 2 months beginning at age 52. Physical Findings: Nurse Summary: 5cm thickening (nurse ms). US Breast Limited RT Right limited breast ultrasound including focal area of concern, retroareolar and axilla demonstrates 6.4cm anechoic fluid seen at 9-11 o'clock, large cyst. On some images, the structure may be behind muscle. Scanned 9-12 o'clock. These results were verbally communicated with the patient and result sheet given to the patient on 11/21/20. ASSESSMENT: Incomplete: need additional imaging evaluation, BI-RAD 0 RECOMMENDATION: Special view mammogram of the right breast.
--- NOTE | 2020-11-27 11:34 | MM ---
Reason for exam: additional evaluation requested from abnormal screening. Last mammogram was performed 1 month ago. History: Patient is postmenopausal and is nulliparous. Breast lifts of both breasts, 2013. Implant Removal of both breasts, 2013. Retro-pectoral silicone gel implants in both breasts, 1989. Took hormonal contraceptives for 7 months beginning at age 50. Taking estrogen for 13 years 2 months beginning at age 52. MG 3D Diag Mammo W/Cad RT CC and MLO view(s) were taken of the right breast. Prior study comparison: October 23, 2020, right breast MG 3d diag mammo w/cad RT. April 07, 2020, bilateral MG 3d diag mammo w/cad REGINO. The breast tissue is heterogeneously dense. This may lower the sensitivity of mammography. Large rounded structure projects behind the pectoralis. Patient had implant removed in 2018. 2016 CT chest is received and shows no implant. Recommend repeat CT. These results were verbally communicated with the patient and result sheet given to the patient on 11/21/20. ASSESSMENT: Probably benign, BI-RAD 3 RECOMMENDATION: Further imaging of the right breast. (CT chest with contrast)
== END | disposition home or self-care (01) ==
LOC: RADUSWWP 12:54
PROVIDERS: ATTEND Surgery
DX: R92.2 Inconclusive mammogram (principal); N60.01 Solitary cyst of right breast; N64.89 Other specified disorders of breast; Z78.0 Asymptomatic menopausal state
CPT/HCPCS: 77061; 77065

== ENCOUNTER → 2020-12-01 | Outpatient (CLI) | payer BC ==
--- NOTE | 2020-12-01 09:31 | CT ---
EXAMINATION TYPE: CT chest w con DATE OF EXAM: 12/01/2020 COMPARISON: 12/11/2015 HISTORY: 65-year-old female R68.89. Follow up scan per patient. TECHNIQUE: Contiguous axial scanning of the chest after the administration of 100 mL of Isovue 300. Coronal/sagittal reconstructions performed. CT DLP: 114.7mGycm. Automatic exposure control utilized for a dose reduction. FINDINGS: Heart normal size without pericardial effusion. Ectatic ascending aorta 3.6 cm versus 3.5 cm, previously. Bovine configuration to the aortic arch. No thoracic lymphadenopathy by CT size criteria. There is a fluid collection which resembles a collapsed implant in the right subpectoral region track ing superiorly along the superficial aspect of the pectoralis minor. This fluid collection measures 1 .7 cm thick, up to 6.6 cm wide, and expands up to 12.5 cm craniocaudal. Findings were not present on the 12/11/2015 exam. Some strandy atelectasis medial right middle lobe. No consolidation or pleural effusion. Visualized upper abdomen shows moderate stool within the splenic flexure of the colon. Bones: No osseous destructive process. IMPRESSION: 1. Fluid collection which resembles a collapsed implant in the right subpectoral region tracking supe riorly along the superficial aspect of the pectoralis minor measuring up to 12.5 cm craniocaudal. Thi s was not present on the 12/11/2015 exam and further clinical correlation is advised as to the patient 's surgical and implant history. If there is no history of implant placement after 12/11/2015, aspirat ion with fluid analysis is recommended. 2. Otherwise, no specific abnormality seen.
== END | disposition home or self-care (01) ==
LOC: RADCTMAIN 08:03
PROVIDERS: ATTEND Surgery
DX: R68.89 Other general symptoms and signs (principal)
CPT/HCPCS: 71260; Q9967

== ENCOUNTER → 2020-12-18 | Day surgery (SDC) | payer BC ==
[2020-12-18 09:47] VITALS: BP 125/80; PULSE 69; RESP 16; TEMP 98.6
--- NOTE | 2020-12-18 14:01 | USB ---
Ultrasound guided right breast biopsy, canceled The procedure was canceled on today's study due to significant decrease in fluid collection within th e right breast at 11:00, zone BC.. There are tiny residual cystic fluid collection seen in this regio n. A six-month follow-up is recommended right diagnostic mammogram and sonographic study of the right breast. IMPRESSION: 1. The right breast biopsy was canceled due to significant decrease in fluid collection in the right breast at 11:00, zone BC. Tiny residual cystic fluid collections in this region. A six-month follow-u p right diagnostic mammogram and sonographic study of the right breast is recommended. BI-RADS 3: Probably benign Recommend 6 month follow-up right diagnostic mammogram and ultrasound.
== END ==
LOC: RADUSWWP 09:27
PROVIDERS: ATTEND Surgery
DX: R92.8 Other abnormal and inconclusive findings on diagnostic imaging of breast (principal)

== ENCOUNTER 2021-04-17 08:23 | Day surgery (SDC) | payer BC ==
[2021-04-15 08:58] VITALS: BMI 18.8
[2021-04-17] MEDS ORDERED: LIDOCAINE 1% (10MG/ML) FOR IV START INTRADERMA ONE (09:39)
[2021-04-17] MEDS ORDERED: PROPOFOL 10 MG/ML 20 ML VIAL IV ONE (09:58)
--- NOTE | 2021-04-17 10:20 | P.PCN ---
Date of Procedure: 04/17/21 Procedure(s) Performed: BRIEF HISTORY: Patient is a 65-year-old pleasant white female scheduled for an elective colonoscopy as a part of evaluation of prior history of colon polyps. Her last coloscopy was 10 years ago. PROCEDURE PERFORMED: Colonoscopy with snare polypectomy. PREOPERATIVE DIAGNOSIS: History of colon polyps. IV sedation per Anesthesia. PROCEDURE: After informed consent was obtained, the patient, was brought into the endoscopy unit. IV sedation was administered by Anesthesia under continuous monitoring. Digital rectal examination was normal. Initially the Olympus CF-160 flexible video colonoscope was then inserted in the rectum, gradually advanced into the cecum without any difficulty. Careful examination was performed as the scope was gradually being withdrawn. Ileocecal valve and the appendiceal orifice were visualized and appeared normal. Prep was excellent. In the in the ascending colon there was a 7 mm polyp that was moved by snare polypectomy. Mucosa of the cecum, ascending colon, transverse colon, descending colon, sigmoid colon, and rectum appeared normal. Retroflexion was performed in the rectum and no lesions were seen. The patient tolerated the procedure well. IMPRESSION: 7 Millimeters flat ascending colon polyp status post polypectomy Rest of the colon appeared normal RECOMMENDATIONS: Findings of this examination were discussed with the patient well as her family. She was advised to follow with the biopsy results. If the biopsy reveals an adenoma she can have a repeat colonoscopy in 5 years.
[2021-04-17 10:45] VITALS: BP 117/71; PULSE 68; RESP 16
== END 2021-04-17 11:09 | disposition home or self-care (01) ==
LOC: ORWHC2ENDO 08:23
PROVIDERS: ATTEND Internal Medicine Gastroenterology
DX: K63.5 Polyp of colon (principal); Z86.010 Personal history of colon polyps
CPT/HCPCS: 45385; 88305; J2704

== ENCOUNTER → 2021-06-08 | Outpatient (CLI) | payer BC ==
--- NOTE | 2021-06-09 08:01 | MM ---
Reason for exam: follow-up at short interval from prior study. Last mammogram was performed 7 months ago. History: Patient is postmenopausal and is nulliparous. US discontinued breast bx RT of the right breast, December 18, 2020. Breast lifts of both breasts, 2013. Implant Removal of both breasts, 2013. Retro-pectoral silicone gel implants in both breasts, 1989. Took hormonal contraceptives for 7 months beginning at age 50. Taking estrogen for 13 years 2 months beginning at age 52. Physical Findings: Nurse did not find any significant physical abnormalities on exam. MG 3D Diag Mammo W/Cad REGINO Bilateral CC and MLO view(s) were taken. Prior study comparison: November 21, 2020, right breast MG 3d diag mammo w/cad RT. April 07, 2020, bilateral MG 3d diag mammo w/cad REGINO. March 09, 2019, bilateral MG 3d screening mammo w/cad. The breast tissue is extremely dense which could obscure a lesion on mammography. There is no discrete abnormality including area of concern prior right upper breast. No significant new findings when compared with previous films. These results were verbally communicated with the patient and result sheet given to the patient on 06/08/21. ASSESSMENT: Benign, BI-RAD 2 RECOMMENDATION: Routine screening mammogram of both breasts in 1 year.
--- NOTE | 2021-06-09 08:03 | USB ---
Reason for exam: follow-up at short interval from prior study. History: Patient is postmenopausal and is nulliparous. US discontinued breast bx RT of the right breast, December 18, 2020. Breast lifts of both breasts, 2013. Implant Removal of both breasts, 2013. Retro-pectoral silicone gel implants in both breasts, 1989. Took hormonal contraceptives for 7 months beginning at age 50. Taking estrogen for 13 years 2 months beginning at age 52. US Breast Limited RT Technologist: Areli Bowen Right limited breast ultrasound including focal area of concern, retroareolar and axilla demonstrates a cystic lesion at 11 o'clock, posterior to muscle. Scanned 10-12 o'clock. These results were verbally communicated with the patient and result sheet given to the patient on 06/08/21. ASSESSMENT: Probably benign, BI-RAD 3 RECOMMENDATION: Ultrasound of the right breast in 6 months.
== END | disposition home or self-care (01) ==
LOC: RADMAMWWP 14:01
PROVIDERS: ATTEND Surgery
DX: N60.01 Solitary cyst of right breast (principal); R92.2 Inconclusive mammogram; Z78.0 Asymptomatic menopausal state; Z98.82 Breast implant status
CPT/HCPCS: 77062; 77066

== ENCOUNTER → 2021-06-18 | Outpatient (CLI) | payer BC ==
[2021-06-18 23:29] LABS: HCT 37.5 % (37.2-46.3); HGB 11.9 g/dL (12.0-15.0); MCH 31.4 pg (27.0-32.0); MCHC 31.7 g/dL (32.0-37.0); MCV 98.9 fL (80.0-97.0); Mean Platelet Volume 9.5 fL (9.5-12.2); Platelet Count 383 X 10*3/uL (140-440); RBC 3.79 X 10*6/uL (4.10-5.20); RDW 12.9 % (11.5-14.5); WBC 8.46 X 10*3/uL (4.50-10.00)
== END | disposition home or self-care (01) ==
LOC: LABWHC1 16:12
PROVIDERS: ATTEND Obstetrics & Gynecology
DX: D64.9 Anemia, unspecified (principal)
CPT/HCPCS: 36415; 85027

== ENCOUNTER → 2021-11-27 | Outpatient (CLI) | payer BC ==
--- NOTE | 2021-11-27 11:09 | USB ---
Reason for Exam: Follow-up at short interval from prior study. Patient History: Menarche at age 16. Patient has no children. Left ovary removed at age 52. Right ovary removed at age 52. Hysterectomy at age 52. Postmenopausal. Currently using Estrogen, beginning at age 52 for 13 years, 2 months. Hormonal Contraceptives for 7 months from age 50 until age 51. 2013, Bilateral Implant Removal. 12/18/2020, US discontinued breast bx RT on the right side. 1989, Bilateral Implants. Risk Values: Lynda 5 year model risk: 1.6%. NCI Lifetime model risk: 6.6%. Prior Study Comparison: 10/23/2020 Right Diagnostic Mammogram, [facility]. 11/21/2020 Right Diagnostic Mammogram, [facility]. 06/08/2021 Bilateral Diagnostic Mammogram, [facility]. Findings: 1.2 x 0.4 x 0.5cm probable cystic cluster. Overall Assessment: Probably benign, BI-RAD 3 Management: Diagnostic Breast Ultrasound of the right breast in 6 months. A clinical breast exam by your physician is recommended on an annual basis and results should be correlated with mammographic findings. Electronically signed and approved by: Enrique Whitney M.D. Radiologis
== END | disposition home or self-care (01) ==
LOC: RADUSWWP 08:53
PROVIDERS: ATTEND Surgery
DX: N60.01 Solitary cyst of right breast (principal)

== ENCOUNTER → 2021-12-04 | Outpatient (CLI) | payer BC ==
[2021-12-04 15:40] VITALS: BP 137/81; PULSE 63; RESP 16; TEMP 98.8
--- NOTE | 2021-12-04 16:03 | P.PN ---
Subjective Progress Note Date: 12/04/21 Principal diagnosis: fibrocystic breast changes Abbi is a 66 year old white female seen in consultation for DR. Owens regarding a lump in her right breast. She had a bilateral mammogram on [id number]. On this film she was noted to have chronic nodularity in the left breast. There was a focal asymmetry in the right breast and an ultrasound was recommended of the right breast. This was done on the same date and this did not reveal any specific cystic or solid lesion of concern and a follow-up diagnostic right breast mammogram in 6 months was recommended. This was repeated on and this was felt to be benign BIRADS 1. Approximately 2 weeks ago the patient noted a nodule in her right breast. The area is located in the upper outer quadrant region. It has not changed in size since she noticed it. It is not tender to palpation. She is not complaining of any nipple discharge or skin changes. She is not complaining of any trauma or infection in the breast. The patient had bilateral silicone implants placed in the past but these were removed approximately 7 years ago when she's not had any surgery on her breast since that time. 12-04-21 Initially we were going to undergo an aspiration of the fluid behind the pectoralis muscle however at the time which she went for the aspiration the fluid had decreased. She just had a bilateral mammogram on [id number] which was benign BIRADS 2. Additionally she had an ultrasound performed most recently on . This revealed a 1.2 x 0.5 cm probable cystic cluster this was felt to be benign but repeat ultrasound in 6 months was recommended. She does not feel any lumps masses or nodules for which she is concerned. Of importance is the fact that the subpectoral fluid collection seems to have dissipated. She states the fluid occured two weeks after her second COVID shot. Caffeine: 1 cup tea/day nicotine: none, second hand exposure until 32 chocolate: dark chocolate daily small amount Family history: Mother: Lung and throat cancer (smoker) father: Colon cancer sister: Lung cancer Hormonal history: Menarche:16 G0, intentional Menopause:hysterectomy at 52 took ovaries, fibroids BCP: 1 year hormones: vaginal estrogen since 52 still uses Surgical history: Total abdominal hysterectomy eye surgery/ glaucoma and cataract surgery Medical history: chronic migraines fibromyalgia High cholesterol Arthritis Social history: Nicotine: Negative, was exposed to secondhand smoke from until 32 Alcohol:none drugs: none - Constitutional Constitutional: Denies chills, Denies fever - EENT Comment: migraines daily/takes Fioricet with codeine and ibuprofen Eyes: denies blurred vision, denies pain Ears: deny: decreased hearing, tinnitus Ears, nose, mouth and throat: Reports headache, Denies sore throat - Breasts Breasts: bilateral: as per HPI - Cardiovascular Cardiovascular: Denies chest pain, Denies shortness of breath - Respiratory Respiratory: Denies cough - Gastrointestinal Gastrointestinal: Denies abdominal pain, Denies diarrhea, Denies nausea, Denies vomiting - Genitourinary (Female) Genitourinary: Denies dysuria, Denies hematuria - Menstruation Menstruation: Reports post hysterectomy - Musculoskeletal Comment: Fibromyalgia/arthritis - Integumentary Integumentary: Denies pruritus, Denies rash - Neurological Comment: migraine headaches - Psychiatric Psychiatric: Denies anxiety, Denies depression - Endocrine Endocrine: Denies fatigue, Denies weight change - Hematologic/Lymphatic Comment: none - Allergic/Immunologic Allergic/Immunologic: Reports seasonal allergies Objective - Vital Signs Vital signs: Vital Signs Temp 98.8 F 12/04/21 15:37 Pulse 63 12/04/21 15:37 Resp 16 12/04/21 15:37 BP 137/81 12/04/21 15:37 Pulse Ox 99 12/04/21 15:37 FiO2 Intake & Output 12/03/21 12/04/21 12/04/21 18:59 06:59 18:59 Weight 52.163 kg - Exam BMI: 18.6 - Constitutional General appearance: Present: cooperative - EENT Eyes: Present: EOMI ENT: Present: hearing grossly normal - Neck Neck: Present: normal ROM - Respiratory Respiratory: bilateral: CTA - Cardiovascular Rhythm: regular Heart sounds: normal: S1, S2 - Gastrointestinal General gastrointestinal: Present: soft - Integumentary Integumentary: Present: normal turgor - Musculoskeletal Musculoskeletal: Present: gait normal - Psychiatric Psychiatric: Present: A&O x's 3, appropriate affect, intact judgment & insight - Additional findings Additional findings: Breast Exam: BRA: 34B inspection: Bilateral scars secondary to prior breast surgery Palpation: Right breast: Multi-positional exam fibrocystic changes no dominant masses or nodules of concern Right axilla: No adenopathy of concern Left breast: Positional exam fibrocystic changes no dominant masses or nodules of concern Left axilla: No adenopathy of concern Assessment and Plan Assessment: Impression: Fibrocystic breast changes Fluid and subpectoral area on the right appears to have resolved largely continue to follow this Recent right breast ultrasound benign Plan: Bilateral mammogram in 6 months with right breast ultrasound Follow-up at that time Patient to follow up sooner if questions or concerns CC: Dr. Solorzano, Dr. Owens
== END ==
LOC: WWCWWP 15:18
PROVIDERS: ATTEND Surgery
DX: N60.11 Diffuse cystic mastopathy of right breast (principal); N60.12 Diffuse cystic mastopathy of left breast; G43.909 Migraine, unspecified, not intractable, without status migrainosus; E78.00 Pure hypercholesterolemia, unspecified; M19.90 Unspecified osteoarthritis, unspecified site; Z91.011 Allergy to milk products; Z88.5 Allergy status to narcotic agent; Z88.4 Allergy status to anesthetic agent

== ENCOUNTER → 2022-02-10 | Outpatient (CLI) | payer BC ==
--- NOTE | 2022-02-10 12:05 | CA ---
Exercise Stress Test Report Name: Abbi Ramirez Exam Date: 02/10/2022 09:09 Exam Location: [place] Stress Ht (in): 66 Wt (lb): 117 BSA: 1.59 Ordering Phys: Doris Leong DO Referring Phys: Holly Arreola PAC Technologist: [employer] Age: 66 Gender: F : 1955 Procedure CPT: Indications: R06.09 Z82.49 ICD-10 Codes: Patient History: Medications: SEE LIST Meds past 24 hrs: Pretest Chest Pain: STRESS TEST Mike Protocol Exercise Duration (min:sec): 08:[address] Depressions (mm): Angina Score: Neal Score: Resting HR (bpm): 89 Peak HR (bpm): 152 Resting BP (mmHg): 136 / 93 Peak BP (mmHg): 179 / 103 MPHR: 156 Target HR: 133 % MPHR: 97 METS: 10.3 Total Dose: Peak Dose: Atropine: Double Product: 93556 BP Response: Stress Termination: Reached target heart rate Stress Symptoms: NO SYMPTOMS Stress Summary: ECG ANALYSIS Resting ECG: Stress ECG: CONCLUSIONS Patient underwent exercise stress EKG with a Mike protocol treadmill stress test. Patient exercised into Stage 2 for a total of 8 minutes reaching a total of 10.3 METS. Patient's maximum heart rate was 152 which represented 97 % age-predicted maximum heart rate. Stress EKG findings: At baseline patient's EKG showed normal sinus rhythm, normal axis, no significant ST or T wave abnormalities. At peak exercise, EKG showed no significant change from baseline. Conclusions: 1. Normal EKG response to exercise without evidence of inducible ischemia. 2. Fair exercise capacity. Dr. Gilbert Nelson DO (Electronically Signed) Final Date: 10 February 2022 12:04
== END | disposition home or self-care (01) ==
LOC: RADNMMAIN 08:27
PROVIDERS: ATTEND Family Medicine
DX: R07.9 Chest pain, unspecified (principal)
CPT/HCPCS: 93017

== ENCOUNTER → 2022-06-10 | Outpatient (CLI) | payer BC ==
--- NOTE | 2022-06-10 09:18 | MM ---
Reason for Exam: Follow-up at short interval from prior study. Last screening mammogram was performed 12 month(s) ago. Patient History: Menarche at age 16. Patient has no children. Left ovary removed at age 52. Right ovary removed at age 52. Hysterectomy at age 52. Postmenopausal. Currently using Estrogen, beginning at age 52 for 13 years, 2 months. Hormonal Contraceptives for 7 months from age 50 until age 51. 2013, Bilateral Implant Removal. 12/18/2020, US discontinued breast bx RT on the right side. 1989, Bilateral Implants. Risk Values: Lynda 5 year model risk: 1.6%. NCI Lifetime model risk: 6.6%. Tissue Density: The breast tissue is extremely dense which could obscure a lesion on mammography. Findings: Analyzed By CAD. Pattern appears stable. Diffuse increased densities in the subareolar right breast, unchanged from prior study. Some very faint calcification may be within the posterior retroareolar region right breast, this was present previously. Overall Assessment: Incomplete: need additional imaging evaluation, BI-RAD 0 Management: Diagnostic Breast Ultrasound of the right breast. A clinical breast exam by your physician is recommended on an annual basis and results should be correlated with mammographic findings. This exam should not preclude additional follow-up of suspicious palpable abnormalities. Results were given to the patient verbally at the time of exam. Electronically signed and approved by: Kelvin Helms D.O. Radiologis
--- NOTE | 2022-06-10 09:29 | USB ---
Reason for Exam: Follow-up at short interval from prior study. Patient History: Menarche at age 16. Patient has no children. Left ovary removed at age 52. Right ovary removed at age 52. Hysterectomy at age 52. Postmenopausal. Currently using Estrogen, starting at age 52. Hormonal Contraceptives for 7 months from age 32 until age 33. 2013, Bilateral Implant Removal. 12/18/2020, US discontinued breast bx RT on the right side. 1989, Bilateral Implants. Risk Values: Lynda 5 year model risk: 1.6%. NCI Lifetime model risk: 6.6%. Prior Study Comparison: 10/23/2020 Right Diagnostic Mammogram, [facility]. 11/21/2020 Right Diagnostic Mammogram, [facility]. 06/08/2021 Bilateral Diagnostic Mammogram, [facility]. Findings: The upper outer quadrant of the right breast, the axilla of the right breast and the retroareolar of the right breast were scanned. There is a hypoechoic collection measuring 1.2 x 0.5 x 0.4 cm at the 11:00 position 8 cm from the nipple. This appears to be far posterior, and potentially posterior to the pectoralis muscle. This area is less cystic than the comparison study overload no interval change in size is evident. Finding is likely benign, short-term follow-up is recommended. Overall Assessment: Probably benign, BI-RAD 3 Management: Diagnostic Breast Ultrasound of the right breast in 6 months. A clinical breast exam by your physician is recommended on an annual basis and results should be correlated with mammographic findings. This exam should not preclude additional follow-up of suspicious palpable abnormalities. Results were given to the patient verbally at the time of exam. Electronically signed and approved by: Kelvin Helms D.O. Radiologis
== END | disposition home or self-care (01) ==
LOC: RADMAMWWP 08:21
PROVIDERS: ATTEND Surgery
DX: N63.42 Unspecified lump in left breast, subareolar (principal); Z78.0 Asymptomatic menopausal state
CPT/HCPCS: 77062; 77066

== ENCOUNTER → 2022-06-17 | Outpatient (CLI) | payer BC ==
[2022-06-17 09:29] VITALS: BP 135/81; PULSE 70; RESP 17; TEMP 98.1
--- NOTE | 2022-06-17 10:03 | P.PN ---
Subjective Progress Note Date: 06/17/22 Principal diagnosis: Fluid collection behind right pectoral muscle/fibrocystic breast changes fibrocystic breast changes Abbi is a 66 year old white female seen in consultation for DR. Owens regarding a lump in her right breast. She had a bilateral mammogram on [id number]. On this film she was noted to have chronic nodularity in the left breast. There was a focal asymmetry in the right breast and an ultrasound was recommended of the right breast. This was done on the same date and this did not reveal any specific cystic or solid lesion of concern and a follow-up diagnostic right breast mammogram in 6 months [place]. [place] [address] and this was felt to be benign BIRADS 1. Approximately 2 weeks ago the patient noted a nodule in her right breast. The area is located in the upper outer quadrant region. It has not changed in size since she noticed it. It is not tender to palpation. She is not complaining of any nipple discharge or skin changes. She is not complaining of any trauma or infection in the breast. The patient had bilateral silicone implants placed in the past but these were removed approximately 7 years ago when she's not had any surgery on her breast since that time. The patient then [address] underwent a computed tomography scan of the chest. This revealed a fluid collection which resembled a collapsed implant in the right subpectoral region tracking superiorly along the superficial aspect of the pectoralis minor muscle measuring up to 12.5 cm craniocaudally[place] [address]. Aspiration with fluid analysis was recommended. The patient subsequently underwent an attempted ultrasound-guided aspiration on 12-18-20 this was cancelled. 12-04-21 Initially we were going to undergo an aspiration of the fluid behind the pectoralis muscle however at the time which she went for the aspiration the fluid had decreased. She just had a bilateral mammogram on 199594 which was benign BIRADS 2. Additionally she had an ultrasound performed most recently on . This revealed a 1.2 x 0.5 cm probable cystic cluster this was felt to be benign but repeat ultrasound in 6 months was recommended. She does not feel any lumps masses or nodules for which she is concerned. Of importance is the fact that the subpectoral fluid collection seems to have dissipated. She states the fluid occured two weeks after her second COVID shot. 06-17-22 The patient underwent a bilateral mammogram on 06-10-22 which was reviewed personally with Dr. Thapa, it was recommended she undergo a right breast ultrasound. Right breast ultrasound was also reviewed and showed a cystic lesion 1.2 x 0.5 cm in size. This was felt to be repeat ultrasound of the right breast was recommended in 6 months. Of concern is the fact that when I reviewed the CAT scan as well as the radiographic studies with Dr. Taylor there was concern that the fluid collection initially seen men[place] [address] was not adequately evaluated. Patient is not feeling any lumps masses or nodules of concern in either breast. The patient has had bilateral subpectoral implants placed 19 years ago, subsequently removed approximately 9 years ago with bilateral breast lifts at that time. She herself does not feel any lumps masses or nodules of concern in either breast at this time. Caffeine: 1 cup tea/day nicotine: none, second hand exposure until 32 chocolate: dark chocolate daily small amount Family history: Mother: Lung and throat cancer (smoker) father: Colon cancer sister: Lung cancer Hormonal history: Menarche:16 G0, intentional Menopause:hysterectomy at 52 took ovaries, fibroids BCP: 1 year hormones: vaginal estrogen since 52 still uses Surgical history: Total abdominal hysterectomy eye surgery/ glaucoma and cataract surgery Medical history: chronic migraines fibromyalgia High cholesterol Arthritis Social history: Nicotine: Negative, was exposed to secondhand smoke from until 32 Alcohol:none drugs: none - Constitutional Constitutional: Denies chills, Denies fever - EENT Comment: migraines daily/takes Fioricet with codeine and ibuprofen Eyes: denies blurred vision, denies pain Ears: deny: decreased hearing, tinnitus Ears, nose, mouth and throat: Reports headache, Denies sore throat - Breasts Breasts: bilateral: as per HPI - Cardiovascular Cardiovascular: Denies chest pain, Denies shortness of breath - Respiratory Respiratory: Denies cough - Gastrointestinal Gastrointestinal: Denies abdominal pain, Denies diarrhea, Denies nausea, Denies vomiting - Genitourinary (Female) Genitourinary: Denies dysuria, Denies hematuria - Menstruation Menstruation: Reports post hysterectomy - Musculoskeletal Comment: Fibromyalgia/arthritis - Integumentary Integumentary: Denies pruritus, Denies rash - Neurological Comment: migraine headaches - Psychiatric Psychiatric: Denies anxiety, Denies depression - Endocrine Endocrine: Denies fatigue, Denies weight change - Hematologic/Lymphatic Comment: none - Allergic/Immunologic Allergic/Immunologic: Reports seasonal allergies Objective - Vital Signs Vital signs: Vital Signs Temp 98.1 F 06/17/22 09:27 Pulse 70 06/17/22 09:27 Resp 17 06/17/22 09:27 BP 135/81 06/17/22 09:27 Pulse Ox 99 06/17/22 09:27 FiO2 Intake & Output 06/16/22 06/17/22 06/17/22 18:59 06:59 18:59 Weight 52.163 kg - Constitutional General appearance: Present: cooperative - EENT Eyes: Present: EOMI ENT: Present: hearing grossly normal - Neck Neck: Present: normal ROM - Respiratory Respiratory: bilateral: CTA - Cardiovascular Rhythm: regular Heart sounds: normal: S1, S2 - Gastrointestinal General gastrointestinal: Present: soft - Integumentary Integumentary: Present: normal turgor - Musculoskeletal Musculoskeletal: Present: gait normal - Psychiatric Psychiatric: Present: A&O x's 3, appropriate affect, intact judgment & insight - Additional findings Additional findings: Breast Exam: BRA; 34B Inspection: Bilateral incisions from breast lift/reduction mammoplasty incisions, bilateral grade 2 ptosis Palpation: Right breast: Multi-positional exam fibrocystic changes no dominant masses or nodules of concern, no evidence of fluid is present on today's examination Right axilla: No adenopathy of concern Left breast: Multiple positional exam fibrocystic changes no dominant masses or nodules of concern Left axilla: No adenopathy of concern Assessment and Plan Assessment: Impression: Fibrocystic breast changes Abnormal right breast ultrasound Fluid collection behind right [place] [address], reevaluation with computed tomography scan recommended Plan: Computed tomography scan of the chest Repeat right breast ultrasound 6 months Patient is leaving for [place] in 2 days. We are going to attempt to get a computed tomography scan prior to her departure. She will get one when she comes back in 4 months if it cannot be done prior. She understands that if fluid is present I cannot promise that the pathology is benign without further evaluation and that she may be recommended to undergo an aspiration when she returns. WE have discussed her getting a CT scan in [place] and she would like to wait to be evaluated her in [place]. CC: Dr. Solorzano
== END ==
LOC: WWCWWP 08:57
PROVIDERS: ATTEND Surgery
DX: Z12.31 Encounter for screening mammogram for malignant neoplasm of breast (principal); Z91.011 Allergy to milk products; Z88.5 Allergy status to narcotic agent; Z88.6 Allergy status to analgesic agent

== ENCOUNTER → 2022-12-09 | Outpatient (CLI) | payer MEDICARE ==
--- NOTE | 2022-12-09 09:29 | USB ---
Reason for Exam: Follow-up at short interval from prior study. Patient History: Menarche at age 16. Patient has no children. Left ovary removed at age 52. Right ovary removed at age 52. Hysterectomy at age 52. Postmenopausal. Currently using Estrogen, starting at age 52. Hormonal Contraceptives for 7 months from age 32 until age 33. 2013, Bilateral Implant Removal. 12/18/2020, US discontinued breast bx RT on the right side. 1989, Bilateral Implants. Risk Values: Lynda 5 year model risk: 1.7%. NCI Lifetime model risk: 6.3%. Technique: Method: Targeted. Prior Study Comparison: 11/21/2020 Right Diagnostic Mammogram, [facility]. 06/08/2021 Bilateral Diagnostic Mammogram, [facility]. 06/10/2022 Bilateral MG 3D diag mammo w/cad REGINO, [facility]. Findings: The upper outer quadrant of the right breast, the axilla of the right breast and the retroareolar of the right breast were scanned. Targeted ultrasound the right breast from 9-12 o'clock with additional evaluation nipple and axilla was performed. There is a stable cluster of cysts that are anechoic without internal color flow measuring 1.2 x 0.4 x 0.7 cm within the right breast at 11:00 8 cm from the nipple. Additional elongated anechoic cystic lesion measuring 2.8 x 0.4 x 1.0 cm without internal color flow. This is parallel in orientation. Some suggestive posterior acoustic enhancement. This is at 12:00 in the right breast 5 cm from the nipple. This may represent a seroma/cyst. Previous history of breast implant. Overall Assessment: Probably benign, BI-RAD 3 Management: Diagnostic Breast Ultrasound of the right breast in 6 months. A clinical breast exam by your physician is recommended on an annual basis and results should be correlated with mammographic findings. This exam should not preclude additional follow-up of suspicious palpable abnormalities. Results were given to the patient verbally at the time of exam. Electronically signed and approved by: Sam Webb D.O.
== END | disposition home or self-care (01) ==
LOC: RADUSWWP 08:46
PROVIDERS: ATTEND Surgery
DX: R92.8 Other abnormal and inconclusive findings on diagnostic imaging of breast (principal); Z78.0 Asymptomatic menopausal state

== ENCOUNTER → 2022-12-09 | Outpatient (CLI) | payer MEDICARE ==
[2022-12-09 10:08] VITALS: BP 146/74; PULSE 67; RESP 18; TEMP 98.3
--- NOTE | 2022-12-09 10:19 | P.PN ---
Subjective Progress Note Date: 12/09/22 Principal diagnosis: fluid behind pect muscle right side 06/17/22 Principal diagnosis: Fluid collection behind right pectoral muscle/fibrocystic breast changes fibrocystic breast changes Abbi is a 66 year old white female seen in consultation for DR. Owens regarding a lump in her right breast. She had a bilateral mammogram on [id number]. On this film she was noted to have chronic nodularity in the left breast. There was a focal asymmetry in the right breast and an ultrasound was recommended of the right breast. This was done on the same date and this did not reveal any specific cystic or solid lesion of concern and a follow-up diagnostic right breast mammogram in 6 months [place]. [place] [address] and this was felt to be benign BIRADS 1. Approximately 2 weeks ago the patient noted a nodule in her right breast. The area is located in the upper outer quadrant region. It has not changed in size since she noticed it. It is not tender to palpation. She is not complaining of any nipple discharge or skin changes. She is not complaining of any trauma or infection in the breast. The patient had bilateral silicone implants placed in the past but these were removed approximately 7 years ago when she's not had any surgery on her breast since that time. The patient then [address] underwent a computed tomography scan of the chest. This revealed a fluid collection which resembled a collapsed implant in the rig ht subpectoral region tracking superiorly along the superficial aspect of the pectoralis minor muscle measuring up to 12.5 cm craniocaudally[place] [address]. Aspiration with fluid analysis was recommended. The patient subsequently underwent an attempted ultrasound-guided aspiration on 12-18-20 this was cancelled. 12-04-21 Initially we were going to undergo an aspiration of the fluid behind the pectoralis muscle however at the time which she went for the aspiration the fluid had decreased. She just had a bilateral mammogram on 145897 which was benign BIRADS 2. Additionally she had an ultrasound performed most recently on . This revealed a 1.2 x 0.5 cm probable cystic cluster this was felt to be benign but repeat ultrasound in 6 months was recommended. She does not feel any lumps masses or nodules for which she is concerned. Of importance is the fact that the subpectoral fluid collection seems to have dissipated. She states the fluid occured two weeks after her second COVID shot. 06-17-22 The patient underwent a bilateral mammogram on 06-10-22 which was reviewed personally with Dr. Thapa, it was recommended she undergo a right breast ultrasound. Right breast ultrasound was also reviewed and showed a cystic lesion 1.2 x 0.5 cm in size. This was felt to be repeat ultrasound of the right breast was recommended in 6 months. Of concern is the fact that when I reviewed the CAT scan as well as the radiographic studies with Dr. Taylor there was concern that the fluid collection initially seen men[place] [address] was not adequately evaluated. Patient is not feeling any lumps masses or nodules of concern in either breast. The patient has had bilateral subpectoral implants placed 19 years ago, subsequently removed approximately 9 years ago with bilateral breast lifts at that time. She herself does not feel any lumps masses or nodules of concern in either breast at this time. 12-09-22 Right breast ultrasound done today and reviewed with radiology. Decrease in fluid behind pect muscle, STEVIE 3. Noted the fluid approximately 2 weeks after her second Covid vaccination. She has not noted any new lumps masses or nodules of concern in either breast or on the chest wall. Caffeine: 1 cup tea/day nicotine: none, second hand exposure until 32 chocolate: dark chocolate daily small amount Family history: Mother: Lung and throat cancer (smoker) father: Colon cancer sister: Lung cancer Hormonal history: Menarche:16 G0, intentional Menopause:hysterectomy at 52 took ovaries, fibroids BCP: 1 year hormones: vaginal estrogen since 52 still uses Surgical history: Total abdominal hysterectomy eye surgery/ glaucoma and cataract surgery Medical history: chronic migraines fibromyalgia High cholesterol Arthritis Social history: Nicotine: Negative, was exposed to secondhand smoke from until 32 Alcohol:none drugs: none - Constitutional Constitutional: Denies chills, Denies fever - EENT Comment: migraines daily/takes Fioricet with codeine and ibuprofen Eyes: denies blurred vision, denies pain Ears: deny: decreased hearing, tinnitus Ears, nose, mouth and throat: Reports headache, Denies sore throat - Breasts Breasts: bilateral: as per HPI - Cardiovascular Cardiovascular: Denies chest pain, Denies shortness of breath - Respiratory Respiratory: Denies cough - Gastrointestinal Gastrointestinal: Denies abdominal pain, Denies diarrhea, Denies nausea, Denies vomiting - Genitourinary (Female) Genitourinary: Denies dysuria, Denies hematuria - Menstruation Menstruation: Reports post hysterectomy - Musculoskeletal Comment: Fibromyalgia/arthritis - Integumentary Integumentary: Denies pruritus, Denies rash - Neurological Comment: migraine headaches - Psychiatric Psychiatric: Denies anxiety, Denies depression - Endocrine Endocrine: Denies fatigue, Denies weight change - Hematologic/Lymphatic Comment: none - Allergic/Immunologic Allergic/Immunologic: Reports seasonal allergies Objective - Vital Signs Vital signs: Vital Signs Temp 98.3 F 12/09/22 10:05 Pulse 67 12/09/22 10:05 Resp 18 12/09/22 10:05 BP 146/74 12/09/22 10:05 Pulse Ox 99 12/09/22 10:05 FiO2 Intake & Output 12/08/22 12/09/22 12/09/22 18:59 06:59 18:59 Weight 52.617 kg - Constitutional General appearance: Present: cooperative - EENT Eyes: Present: EOMI ENT: Present: hearing grossly normal - Neck Neck: Present: normal ROM - Respiratory Respiratory: bilateral: CTA - Cardiovascular Rhythm: regular Heart sounds: normal: S1, S2 - Gastrointestinal General gastrointestinal: Present: soft - Integumentary Integumentary: Present: normal turgor - Musculoskeletal Musculoskeletal: Present: gait normal - Psychiatric Psychiatric: Present: A&O x's 3, appropriate affect, intact judgment & insight - Additional findings Additional findings: Breast Exam: BRA; 34B Inspection: Bilateral incisions from breast lift/reduction mammoplasty incisions, bilateral grade 2 ptosis Palpation: Right breast: Multi-positional exam fibrocystic changes no dominant masses or nodules of concern, no evidence of fluid is present on today's examination Right axilla: No adenopathy of concern Left breast: Multiple positional exam fibrocystic changes no dominant masses or nodules of concern Left axilla: No adenopathy of concern Assessment and Plan Assessment: Impression: Fibrocystic breast changes Right chest wall decreased fluid behind pectoralis muscle Plan: Nothing which would warrant interventional biopsy at this time Repeat bilateral mammogram in 6 months Repeat right breast ultrasound in 6 months Follow-up after mammogram and ultrasound in 6 months CC: Dr. Owens, Dr. Solorzano
== END ==
LOC: WWCWWP 08:45
PROVIDERS: ATTEND Surgery
DX: N60.11 Diffuse cystic mastopathy of right breast (principal); E78.00 Pure hypercholesterolemia, unspecified; M79.7 Fibromyalgia; M19.90 Unspecified osteoarthritis, unspecified site; G43.909 Migraine, unspecified, not intractable, without status migrainosus; N63.10 Unspecified lump in the right breast, unspecified quadrant; Z91.011 Allergy to milk products; Z88.4 Allergy status to anesthetic agent; Z88.6 Allergy status to analgesic agent; Z88.5 Allergy status to narcotic agent

== ENCOUNTER → 2023-05-10 | Outpatient (CLI) | payer MEDICARE ==
--- NOTE | 2023-05-10 21:56 | MR ---
EXAMINATION TYPE: MR brain wo/w con DATE OF EXAM: 05/10/2023 COMPARISON: None HISTORY: Migraine headaches CONTRAST: Performed utilizing 5 mL intravenous Gadavist gadolinium contrast. TECHNIQUE: Multiplanar, multiecho imaging on a 3.0 Nancy magnet is performed through the brain. Stud y is performed within 24 hours of arrival to the hospital. The craniovertebral junction is normal. The pituitary is normal. Diffusion-weighted imaging is performed. No abnormal hyperintensity is present to suggest an acute i ntracranial infarct or acute ischemic change. There is a solitary white matter change in the subcortical white matter right frontal lobe. Series 50 1 image 16. This is nonspecific but can be compatible with migraine headaches. This is not out of pro portion for the patient's age. No suspicious enhancement is evident. Ventricles and sulci are appropriate for the patient age. IMPRESSION: 1. Solitary subcortical white matter change right frontal lobe can be associated with migraine headac hes.
== END | disposition home or self-care (01) ==
LOC: RADMRIMAIN 10:48
PROVIDERS: ATTEND Family Medicine
DX: G43.709 Chronic migraine without aura, not intractable, without status migrainosus (principal); R90.82 White matter disease, unspecified
CPT/HCPCS: 70553; A9585

== ENCOUNTER → 2023-06-09 | Outpatient (CLI) | payer MEDICARE ==
--- NOTE | 2023-06-09 14:41 | MM ---
Reason for Exam: Follow-up at short interval from prior study. Last screening mammogram was performed 12 month(s) ago. Patient History: Menarche at age 16. Patient has no children. Left ovary removed at age 52. Right ovary removed at age 52. Hysterectomy at age 52. Postmenopausal. Currently using Estrogen, starting at age 52. Hormonal Contraceptives for 7 months from age 32 until age 33. 2013, Bilateral Implant Removal. 12/18/2020, US discontinued breast bx RT on the right side. 1989, Bilateral Implants. Risk Values: Lynda 5 year model risk: 1.7%. NCI Lifetime model risk: 6.3%. Tissue Density: The breast tissue is heterogeneously dense. This may lower the sensitivity of mammography. Findings: Analyzed By CAD. Suggestion of some underlying subtle nodularity just lateral to the retroareolar plane on gradient images within the right breast. Multiple additional areas of asymmetric density appears similar. Further ultrasound evaluation recommended. Overall Assessment: Incomplete: need additional imaging evaluation, BI-RAD 0 Management: Diagnostic Breast Ultrasound of the right breast. Electronically signed and approved by: Shaun Thapa M.D. Radiologist
--- NOTE | 2023-06-09 15:26 | USB ---
Reason for Exam: Follow-up at short interval from prior study. Patient History: Menarche at age 16. Patient has no children. Left ovary removed at age 52. Right ovary removed at age 52. Hysterectomy at age 52. Postmenopausal. Currently using Estrogen, starting at age 52. Hormonal Contraceptives for 7 months from age 32 until age 33. 2013, Bilateral Implant Removal. 12/18/2020, US discontinued breast bx RT on the right side. 1989, Bilateral Implants. Risk Values: Lynda 5 year model risk: 1.7%. NCI Lifetime model risk: 6.3%. Technique: Method: Targeted. Prior Study Comparison: 11/21/2020 Right Diagnostic Mammogram, [facility]. 06/08/2021 Bilateral Diagnostic Mammogram, [facility]. 06/10/2022 Bilateral MG 3D diag mammo w/cad REGINO, [facility]. Findings: The lateral section of the breast of the right breast, the axilla of the right breast and the retroareolar of the right breast were scanned. Targeted ultrasound lateral half of the right breast 6:00 to 12:00 including scanning of the subareolar region and axilla. Dense tissue is present throughout. Located at the 11:00 position, 8 and radius from the nipple, there is a reniform shaped area measuring 11 x 7 x 4 mm that appears to have been present back to at least 06/08/2021 suggesting a benign etiology. At the 12:00 position, 8 cm from the nipple located deep, a couple similar areas measuring up to 9 mm are noted. Overall smaller compared to 12/09/2022. Unclear if this represents some nonspecific complicated cysts, sequela of prior breast implants, or some deep intramammary lymph nodes. A benign etiology is suggested. No other solid or cystic lesion or axillary lymphadenopathy.. Overall Assessment: Probably benign, BI-RAD 3 Management: Diagnostic Mammogram of the right breast in 6 months. A clinical breast exam by your physician is recommended on an annual basis and results should be correlated with mammographic findings. This exam should not preclude additional follow-up of suspicious palpable abnormalities. Results were given to the patient verbally at the time of exam. Electronically signed and approved by: Shaun Thapa M.D. Radiologist
== END | disposition home or self-care (01) ==
LOC: RADMAMWWP 14:16
PROVIDERS: ATTEND Surgery
DX: R92.333 Mammographic heterogeneous density, bilateral breasts (principal); Z78.0 Asymptomatic menopausal state; Z98.82 Breast implant status
CPT/HCPCS: 77066; 76642; G0279; 77062

== ENCOUNTER → 2023-06-17 | Outpatient (CLI) | payer MEDICARE ==
--- NOTE | 2023-06-17 11:29 | P.PN ---
Subjective Progress Note Date: 06/17/23 Principal diagnosis: fluid behind right pect muscle fluid behind pect muscle right side 06/17/22 Principal diagnosis: Fluid collection behind right pectoral muscle/fibrocystic breast changes fibrocystic breast changes Abbi is a 66 year old white female seen in consultation for DR. Owens regarding a lump in her right breast. She had a bilateral mammogram on 104514. On this film she was noted to have chronic nodularity in the left breast. There was a focal asymmetry in the right breast and an ultrasound was recommended of the right breast. This was done on the same date and this did not reveal any specific cystic or solid lesion of concern and a follow-up diagnostic right breast mammogram in 6 months was recommended. This was repeated on and this was felt to be benign BIRADS 1. Approximately 2 weeks ago the patient noted a nodule in her right breast. The area is located in the upper outer quadrant region. It has not changed in size since she noticed it. It is not tender to palpation. She is not complaining of any nipple discharge or skin changes. She is not complaining of any trauma or infection in the breast. The patient had bilateral silicone implants placed in the past but these were removed approximately 7 years ago when she's not had any surgery on her breast since that time. The patient then [address] underwent a computed tomography scan of the chest. This revealed a fluid collection which resembled a collapsed implant in the right subpectoral region tracking superiorly along the superficial aspect of the pectoralis minor muscle measuring up to 12.5 cm craniocaudally. [place] [address]. Aspiration with fluid analysis was recommended. The patient subsequently underwent an attempted ultrasound-guided aspiration on 12-18-20 this was cancelled. 12-04-21 Initially we were going to undergo an aspiration of the fluid behind the pectoralis muscle however at the time which she went for the aspiration the fluid had decreased. She just had a bilateral mammogram on [id number] which was benign BIRADS 2. Additionally she had an ultrasound performed most recently on . This revealed a 1.2 x 0.5 cm probable cystic cluster this was felt to be benign but repeat ultrasound in 6 months was recommended. She does not feel any lumps masses or nodules for which she is concerned. Of importance is the fact that the subpectoral fluid collection seems to have dissipated. She states the fluid occured two weeks after her second COVID shot. 06-17-22 The patient underwent a bilateral mammogram on 06-10-22 which was reviewed personally with Dr. Thapa, it was recommended she undergo a right breast ultrasound. Right breast ultrasound was also reviewed and showed a cystic lesion 1.2 x 0.5 cm in size. This was felt to be repeat ultrasound of the right breast was recommended in 6 months. Of concern is the fact that when I reviewed the CAT scan as well as the radiographic studies with Dr. Taylor there was concern that the fluid collection initially seen menopause pectoral region on the CAT scan of was not adequately evaluated. Patient is not feeling any lumps masses or nodules of concern in either breast. The patient has had bilateral subpectoral implants placed 19 years ago, subsequently removed approximately 9 years ago with bilateral breast lifts at that time. She herself does not feel any lumps masses or nodules of concern in either br east at this time. 12-09-22 Right breast ultrasound done today and reviewed with radiology. Decrease in fluid behind pect muscle, STEVIE 3. Noted the fluid approximately 2 weeks after her second Covid vaccination. She has not noted any new lumps masses or nodules of concern in either breast or on the chest wall. 06-17-22 The patient at this time is doing well with no complaints of any lumps masses or nodules of concern in either breast. Of importance is the fact that in 121 she was noted to have a fluid collection in the subpectoral region of the right chest. This appears to have resolved as noted on ultrasound of the area. Ultrasound was personally reviewed with Dr. Helms who did not feel there was any need for any further CT evaluation. The patient developed severe flulike symptoms following her second Covid vaccination and it was at that time that the fluid was identified and CAT scan behind the pectoral pelvis muscle on the right side. She has not had any further Covid vaccinations. The patient had a bilateral mammogram on 122 [id number] which led to a right breast ultrasound. Right breast ultrasound revealed some nodularity for which was felt to be most likely benign and repeat mammogram/ultrasound of the right breast in 6 months is recommended. Lynda Risk: 1.7%; we will discuss chemoprophylaxis and at this time she is not interested Caffeine: 1 cup tea/day nicotine: none, second hand exposure until 32 chocolate: dark chocolate daily small amount Family history: Mother: Lung and throat cancer (smoker) father: Colon cancer sister: Lung cancer Hormonal history: Menarche:16 G0, intentional Menopause:hysterectomy at 52 took ovaries, fibroids BCP: 1 year hormones: vaginal estrogen since 52 still uses Surgical history: Total abdominal hysterectomy eye surgery/ glaucoma and cataract surgery Medical history: chronic migraines fibromyalgia High cholesterol Arthritis Social history: Nicotine: Negative, was exposed to secondhand smoke from until 32 Alcohol:none drugs: none - Constitutional Constitutional: Denies chills, Denies fever - EENT Comment: migraines daily/takes Fioricet with codeine and ibuprofen Eyes: denies blurred vision, denies pain Ears: deny: decreased hearing, tinnitus Ears, nose, mouth and throat: Reports headache, Denies sore throat - Breasts Breasts: bilateral: as per HPI - Cardiovascular Cardiovascular: Denies chest pain, Denies shortness of breath - Respiratory Respiratory: Denies cough - Gastrointestinal Gastrointestinal: Denies abdominal pain, Denies diarrhea, Denies nausea, Denies vomiting - Genitourinary (Female) Genitourinary: Denies dysuria, Denies hematuria - Menstruation Menstruation: Reports post hysterectomy - Musculoskeletal Comment: Fibromyalgia/arthritis - Integumentary Integumentary: Denies pruritus, Denies rash - Neurological Comment: migraine headaches - Psychiatric Psychiatric: Denies anxiety, Denies depression - Endocrine Endocrine: Denies fatigue, Denies weight change - Hematologic/Lymphatic Comment: none - Allergic/Immunologic Allergic/Immunologic: Reports seasonal allergies Objective - Constitutional General appearance: Present: cooperative - EENT Eyes: Present: EOMI ENT: Present: hearing grossly normal - Neck Neck: Present: normal ROM - Respiratory Respiratory: bilateral: CTA - Cardiovascular Heart sounds: normal: S1, S2 - Integumentary Integumentary: Present: normal turgor - Musculoskeletal Musculoskeletal: Present: gait normal - Psychiatric Psychiatric: Present: A&O x's 3, appropriate affect, intact judgment & insight - Additional findings Additional findings: Breast Exam: BRA; 34B Inspection: Bilateral incisions from breast lift/reduction mammoplasty incisions, bilateral grade 2 ptosis Palpation: Right breast: Multi-positional exam fibrocystic changes no dominant masses or nodules of concern, no evidence of fluid is present on today's examination Right axilla: No adenopathy of concern Left breast: Multiple positional exam fibrocystic changes no dominant masses or nodules of concern Left axilla: No adenopathy of concern Assessment and Plan Assessment: Impression: Fibrocystic breast changes Right chest wall decreased fluid behind pectorals muscle Plan: Nothing which would warrant interventional biopsy at this time Repeat right breast mammogram and ultrasound in 6 months Follow-up after mammogram and ultrasound in 6 months bilateral mammogram in one year CC: Dr. Owens, Dr. Solorzano
[2023-06-17 11:58] VITALS: BP 133/81; PULSE 74; RESP 18; TEMP 98.4
== END ==
LOC: WWCWWP 10:33
PROVIDERS: ATTEND Surgery
DX: N60.11 Diffuse cystic mastopathy of right breast (principal); E78.00 Pure hypercholesterolemia, unspecified; M19.90 Unspecified osteoarthritis, unspecified site; M79.7 Fibromyalgia; N63.20 Unspecified lump in the left breast, unspecified quadrant; N64.89 Other specified disorders of breast; Z28.310 Unvaccinated for COVID-19; Z77.22 Contact with and (suspected) exposure to environmental tobacco smoke (acute) (chronic); Z90.710 Acquired absence of both cervix and uterus; G43.909 Migraine, unspecified, not intractable, without status migrainosus; Z91.011 Allergy to milk products; Z79.890 Hormone replacement therapy; Z88.1 Allergy status to other antibiotic agents; Z88.6 Allergy status to analgesic agent; Z88.5 Allergy status to narcotic agent

== ENCOUNTER → 2023-12-13 | Outpatient (CLI) | payer MEDICARE ==
--- NOTE | 2023-12-13 10:11 | MM ---
Reason for Exam: Follow-up at short interval from prior study. Last screening mammogram was performed 7 month(s) ago. Patient History: Menarche at age 16. Patient has no children. Left ovary removed at age 52. Right ovary removed at age 52. Hysterectomy at age 52. Postmenopausal. Currently using Estrogen, starting at age 52. Hormonal Contraceptives for 7 months from age 32 until age 33. 2013, Bilateral Implant Removal. 12/18/2020, discontinued breast bx RT on the right side. 1989, Bilateral Implants. Risk Values: Lynda 5 year model risk: 1.7%. NCI Lifetime model risk: 6.1%. Prior Study Comparison: 06/10/2017 Left Diagnostic Mammogram, [facility]. 02/07/2018 Bilateral Screening Mammogram, [facility]. 03/09/2019 Bilateral Screening Mammogram, [facility]. 03/20/2019 Bilateral Diagnostic Mammogram, [facility]. 04/07/2020 Bilateral Diagnostic Mammogram, [facility]. 10/23/2020 Right Diagnostic Mammogram, [facility]. 11/21/2020 Right Diagnostic Mammogram, [facility]. 06/08/2021 Bilateral Diagnostic Mammogram, [facility]. 06/10/2022 Bilateral MG 3D diag mammo w/cad REGINO, [facility]. 06/09/2023 Bilateral MG 3D diag mammo w/cad REGINO, [facility]. Tissue Density: Right: The breasts are heterogeneously dense, which may obscure small masses. Findings: Analyzed By CAD. Centrally located asymmetric density posterior depth remains unchanged back to the 2020 exam. Additional scattered areas of asymmetric density are unchanged as well. No significant change in the interval. Overall Assessment: Benign, BI-RAD 2 Management: Screening Mammogram of both breasts in 6 months. Results were given to the patient verbally at the time of exam. Patient should continue monthly self-breast exams. A clinical breast exam by your physician is recommended on an annual basis. This exam should not preclude additional follow-up of suspicious palpable abnormalities. Note on Lynda scores and lifetime risk: 1. A Lynda score greater than 3% is considered moderate risk. If this is the case, consider specialist referral to assess eligibility for a risk reducing agent. 2. If overall lifetime risk for the development of breast cancer is 20% or higher, the patient may qualify for future screening with alternating mammogram and breast MRI. Electronically signed and approved by: Shaun Thapa M.D. Radiologist
== END | disposition home or self-care (01) ==
LOC: RADMAMWWP 09:31
PROVIDERS: ATTEND Surgery
DX: R92.331 Mammographic heterogeneous density, right breast (principal); R92.8 Other abnormal and inconclusive findings on diagnostic imaging of breast; Z78.0 Asymptomatic menopausal state
CPT/HCPCS: 77065; G0279; 77061

== ENCOUNTER → 2023-12-22 | Outpatient (CLI) | payer MEDICARE ==
[2023-12-22 09:27] VITALS: BP 108/66; PULSE 78; RESP 17; TEMP 98.1
--- NOTE | 2023-12-22 09:47 | P.PN ---
Subjective Progress Note Date: 12/22/23 Principal diagnosis: fibrocystic breast changes fluid behind pect muscle right side 12-22-23 Principal diagnosis 12-22-23 68-year-old white female who has been followed since 2019 for breast nodularity. She following a second COVID vaccination in 2020 developed a fluid collection behind the right pectoralis muscle. This was identified on a CT scan. An attempted aspiration was made but the fluid had decreased in size and she has subsequently been followed conservatively. She most recently had a bilateral mammogram on 06-09-23, after which a right breast ultrasound was performed. To be probably benign BI-RADS 3 and a diagnostic mammogram of the right breast in 6 months was recommended. No lesions of concern had been identified on the left side. Her repeat right breast mammogram was performed on 12-13-2023. Centrally located asymmetric density remained unchanged back to 2019 exam. This was felt to be BI-RADS 2 and repeat bilateral mammogram in 6 months was recommended. Not complaining of any new lumps masses or nodules of concern in either breast. Caffeine: 1 cup tea/day nicotine: none, second hand exposure until chocolate: dark chocolate daily small amount Family history: Mother: Lung and throat cancer (smoker) father: Colon cancer sister: Lung cancer Hormonal history: Menarche:16 G0, intentional Menopause:hysterectomy at 52 took ovaries, fibroids BCP: 1 year hormones: vaginal estrogen since 52 still uses Surgical history: Total abdominal hysterectomy eye surgery/ glaucoma and cataract surgery Medical history: chronic migraines fibromyalgia High cholesterol Arthritis Social history: Nicotine: Negative, was exposed to secondhand smoke from until 32 Alcohol:none drugs: none - Constitutional Constitutional: Denies chills, Denies fever - EENT Comment: migraines daily/takes Fioricet with codeine and ibuprofen Eyes: denies blurred vision, denies pain Ears: deny: decreased hearing, tinnitus Ears, nose, mouth and throat: Reports headache, Denies sore throat - Breasts Breasts: bilateral: as per HPI - Cardiovascular Cardiovascular: Denies chest pain, Denies shortness of breath - Respiratory Respiratory: Denies cough - Gastrointestinal Gastrointestinal: Denies abdominal pain, Denies diarrhea, Denies nausea, Denies vomiting - Genitourinary (Female) Genitourinary: Denies dysuria, Denies hematuria - Menstruation Menstruation: Reports post hysterectomy - Musculoskeletal Comment: Fibromyalgia/arthritis - Integumentary Integumentary: Denies pruritus, Denies rash - Neurological Comment: migraine headaches - Psychiatric Psychiatric: Denies anxiety, Denies depression - Endocrine Endocrine: Denies fatigue, Denies weight change - Hematologic/Lymphatic Comment: none - Allergic/Immunologic Allergic/Immunologic: Reports seasonal allergies Objective - Vital Signs Vital signs: Vital Signs Temp 98.1 F 12/22/23 09:24 Pulse 78 12/22/23 09:24 Resp 17 12/22/23 09:24 BP 108/66 12/22/23 09:24 Pulse Ox 99 12/22/23 09:24 FiO2 Intake & Output 12/21/23 12/22/23 12/22/23 18:59 06:59 18:59 Weight 52.617 kg - Constitutional General appearance: Present: cooperative - EENT Eyes: Present: EOMI ENT: Present: hearing grossly normal - Neck Neck: Present: normal ROM - Respiratory Respiratory: bilateral: CTA - Cardiovascular Rhythm: regular Heart sounds: normal: S1, S2 - Integumentary Integumentary: Present: normal turgor - Musculoskeletal Musculoskeletal: Present: gait normal - Psychiatric Psychiatric: Present: A&O x's 3, appropriate affect, intact judgment & insight - Additional findings Additional findings: Breast Exam: BRA; 34B Inspection: Bilateral incisions from breast lift/reduction mammoplasty incision s, bilateral grade 2 ptosis Palpation: Right breast: Multi-positional exam fibrocystic changes no dominant masses or nodules of concern, no evidence of fluid is present on today's examination Right axilla: No adenopathy of concern Left breast: Multiple positional exam fibrocystic changes no dominant masses or nodules of concern Left axilla: No adenopathy of concern Assessment and Plan Assessment: Impression: Fibrocystic breast changes Plan: Nothing which would warrant interventional biopsy at this time Repeat bilateral mammogram in 6 months Follow-up after mammogram Dr. Solorzano
== END ==
LOC: WWCWWP 08:35
PROVIDERS: ATTEND Surgery
DX: N60.11 Diffuse cystic mastopathy of right breast (principal); N60.12 Diffuse cystic mastopathy of left breast; Z77.22 Contact with and (suspected) exposure to environmental tobacco smoke (acute) (chronic); Z88.8 Allergy status to other drugs, medicaments and biological substances; Z88.5 Allergy status to narcotic agent; Z91.011 Allergy to milk products

== ENCOUNTER → 2024-06-18 | Outpatient (CLI) | payer MEDICARE ==
--- NOTE | 2024-06-18 10:56 | MM ---
Reason for Exam: Follow-up at short interval from prior study. Last mammogram was performed 1 year(s) and 1 month(s) ago. Patient History: Menarche at age 16. Patient has no children. Left ovary removed at age 52. Right ovary removed at age 52. Hysterectomy at age 52. Postmenopausal. Currently using Estrogen, starting at age 52. Hormonal Contraceptives for 7 months from age 32 until age 33. 2013, Bilateral Implant Removal. 12/18/2020, US discontinued breast bx RT on the right side. 1989, Bilateral Implants. Risk Values: Lynda 5 year model risk: 1.7%. NCI Lifetime model risk: 6.1%. Prior Study Comparison: 02/23/1993 Screening Mammogram, Unknown. 04/30/2002 Screening Mammogram, Unknown. 03/09/2019 Bilateral Screening Mammogram, [facility]. 03/20/2019 Bilateral Diagnostic Mammogram, [facility]. 03/20/2019 Left Diagnostic Ultrasound, [facility]. 01/03/2020 Left Diagnostic Ultrasound, [facility]. 04/07/2020 Bilateral Diagnostic Mammogram, [facility]. 04/07/2020 Right Diagnostic Ultrasound, [facility]. 10/23/2020 Right Diagnostic Mammogram, [facility]. 11/21/2020 Right Diagnostic Ultrasound, [facility]. 11/21/2020 Right Diagnostic Mammogram, [facility]. 06/08/2021 Bilateral Diagnostic Mammogram, [facility]. 06/08/2021 Right Diagnostic Ultrasound, [facility]. 11/27/2021 Right US breast limited RT, [facility]. 06/10/2022 Bilateral MG 3D diag mammo w/cad REGINO, [facility]. 06/10/2022 Right US breast RT, [facility]. 12/09/2022 Right US breast limited RT, [facility]. 06/09/2023 Bilateral MG 3D diag mammo w/cad REGINO, [facility]. 06/09/2023 Right US breast limited RT, [facility]. 12/13/2023 Right MG 3D diag mammo w/cad RT, [facility]. Tissue Density: The breasts are heterogeneously dense, which may obscure small masses. Findings: Analyzed By CAD. No new suspicious masses, calcifications or distortions. Overall Assessment: Benign, BI-RAD 2 Management: Screening Mammogram of both breasts in 1 year. Results were given to the patient verbally at the time of exam. Patient should continue monthly self-breast exams. A clinical breast exam by your physician is recommended on an annual basis. This exam should not preclude additional follow-up of suspicious palpable abnormalities. Note on Lynda scores and lifetime risk: 1. A Lynda score greater than 3% is considered moderate risk. If this is the case, consider specialist referral to assess eligibility for a risk reducing agent. 2. If overall lifetime risk for the development of breast cancer is 20% or higher, the patient may qualify for future screening with alternating mammogram and breast MRI. [facility], , 06/18/2024 10:52 AM. Electronically signed and approved by: Callum Calderon DO
== END | disposition home or self-care (01) ==
LOC: RADMAMWWP 10:28
PROVIDERS: ATTEND Surgery
DX: R92.8 Other abnormal and inconclusive findings on diagnostic imaging of breast (principal); R92.333 Mammographic heterogeneous density, bilateral breasts; Z90.722 Acquired absence of ovaries, bilateral; Z78.0 Asymptomatic menopausal state
CPT/HCPCS: 77066; G0279; 77062

== ENCOUNTER → 2024-06-22 | Outpatient (CLI) | payer MEDICARE ==
[2024-06-22 13:27] VITALS: BP 120/73; PULSE 105; RESP 16; TEMP 97.9
--- NOTE | 2024-06-22 14:19 | P.PN ---
Subjective Progress Note Date: 06/22/24 Principal diagnosis: fibrocystic breast disease fibrocystic breast changes fluid behind pect muscle right side 06-21-24 Principal diagnosis 68-year-old white female who has been followed since 2019 for breast nodularity. She following a second COVID vaccination in 2020 developed a fluid collection behind the right pectoralis muscle. This was identified on a CT scan. An attempted aspiration was made but the fluid had decreased in size and she has subsequently been followed conservatively. She had a bilateral mammogram on 06-09-23, after which a right breast ultrasound was performed. [place] to be probably benign BI-RADS 3 and a diagnostic mammogram of the right breast in 6 months was recommended. No lesions of concern had been identified on the left side. Her repeat right breast mammogram was performed on 12-13-2023. Centrally located asymmetric density remained unchanged back to 2019 exam. This was felt to be BI-RADS 2 and repeat bilateral mammogram in 6 months was recommended. Her most recent bilateral mammogram on 06-18-24 [facility] 2 Not complaining of any new lumps masses or nodules of concern in either breast. Caffeine: 1 cup tea/day nicotine: none, second hand exposure until chocolate: dark chocolate daily small amount Family history: Mother: Lung and throat cancer (smoker) father: Colon cancer sister: Lung cancer Hormonal history: Menarche:16 G0, intentional Menopause:hysterectomy at 52 took ovaries, fibroids BCP: 1 year hormones: vaginal estrogen since 52 still uses Surgical history: Total abdominal hysterectomy eye surgery/ glaucoma and cataract surgery Medical history: chronic migraines fibromyalgia High cholesterol Arthritis Social history: Nicotine: Negative, was exposed to secondhand smoke from until 32 Alcohol:none drugs: none - Constitutional Constitutional: Denies chills, Denies fever - EENT Comment: migraines daily/takes Fioricet with codeine and ibuprofen Eyes: denies blurred vision, denies pain Ears: deny: decreased hearing, tinnitus Ears, nose, mouth and throat: Reports headache, Denies sore throat - Breasts Breasts: bilateral: as per HPI - Cardiovascular Cardiovascular: Denies chest pain, Denies shortness of breath - Respiratory Respiratory: Denies cough - Gastrointestinal Gastrointestinal: Denies abdominal pain, Denies diarrhea, Denies nausea, Denies vomiting - Genitourinary (Female) Genitourinary: Denies dysuria, Denies hematuria - Menstruation Menstruation: Reports post hysterectomy - Musculoskeletal Comment: Fibromyalgia/arthritis - Integumentary Integumentary: Denies pruritus, Denies rash - Neurological Comment: migraine headaches - Psychiatric Psychiatric: Denies anxiety, Denies depression - Endocrine Endocrine: Denies fatigue, Denies weight change - Hematologic/Lymphatic Comment: none - Allergic/Immunologic Allergic/Immunologic: Reports seasonal allergies Objective - Vital Signs Vital signs: Vital Signs Temp 97.9 F 06/22/24 13:25 Pulse 105 H 06/22/24 13:25 Resp 16 06/22/24 13:25 BP 120/73 06/22/24 13:25 Pulse Ox 98 06/22/24 13:25 FiO2 Intake & Output 06/21/24 06/22/24 06/22/24 18:59 06:59 18:59 Weight 52.163 kg - Constitutional General appearance: Present: cooperative - EENT Eyes: Present: EOMI ENT: Present: hearing grossly normal - Neck Neck: Present: normal ROM - Respiratory Respiratory: bilateral: CTA - Cardiovascular Rhythm: regular Heart sounds: normal: S1, S2 - Integumentary Integumentary: Present: normal turgor - Musculoskeletal Musculoskeletal: Present: gait normal - Psychiatric Psychiatric: Present: A&O x's 3, appropriate affect, intact judgment & insight - Additional findings Additional findings: Breast Exam: BRA; 34B Inspection: Bilateral incisions from breast lift/reduction mammoplasty incisions, bilateral grade 2 ptosis Palpation: Right breast: Multi-positional exam fibrocystic changes no dominant masses or nodules of concern, no evidence of fluid is present on today's examination Right axilla: No adenopathy of concern Left breast: Multiple positional exam fibrocystic changes no dominant masses or nodules of concern Left axilla: No adenopathy of concern Assessment and Plan Assessment: Impression: Fibrocystic breast changes Plan: Nothing which would warrant interventional biopsy at this time Repeat bilateral mammogram in one year Follow-up after mammogram, follow up sooner any concerns CC: Dr. Solorzano
== END ==
LOC: WWCWWP 13:08
PROVIDERS: ATTEND Surgery
DX: N60.11 Diffuse cystic mastopathy of right breast (principal); N60.12 Diffuse cystic mastopathy of left breast; Z88.6 Allergy status to analgesic agent; Z88.8 Allergy status to other drugs, medicaments and biological substances; Z91.011 Allergy to milk products